=== PATIENT | male | born 1940 | race Caucasian/White ===

== ENCOUNTER 2019-02-13 10:54 | Outpatient (CLI) | payer MEDICARE ==
--- NOTE | 2019-02-13 13:57 | BD ---
DEXA DENSITOMETRY: HISTORY A 78-year-old male to assess bone density. Osteoporosis screening. FINDINGS: LUMBAR SPINE BMD (g/cm2) T-SCORE L1 0.900 -1.6 L2 1.016 -0.7 L3 1.009 -0.9 L4 1.021 -0.6 TOTAL 0.989 -0.9 FEMORAL NECK 0.653 -2.0 TOTAL 0.769 -1.7 IMPRESSION: 1. The bone mineral density of the lumbar spine is within the normal range. 2. The bone mineral density of the femoral neck indicates osteopenia. TEN YEAR FRACTURE RISK: Major osteoporotic fracture: 9.4% Hip fracture: 3.7% POS: [facility]
== END 2019-02-13 10:55 | disposition home or self-care (01) ==
LOC: BICMAMMO 10:54
PROVIDERS: ATTEND Internal Medicine Endocrinology, Diabetes & Metabolism
DX: M85.859 Other specified disorders of bone density and structure, unspecified thigh (principal); E23.0 Hypopituitarism
CPT/HCPCS: 77080

== ENCOUNTER 2019-08-27 14:22 | Outpatient (CLI) | payer MEDICARE ==
--- NOTE | 2019-08-27 15:02 | RAD ---
EXAM: XR Skull Less Than 4 View PROVIDED CLINICAL HISTORY: MRI screening evaluation. COMPARISON: None FINDINGS: There is a single metallic clip overlying the region of the sella turcica. I am unable to determine w hether this is within the soft tissues at the base of the pituitary or whether this is within the osseous structures of the sella. No additional metallic foreign body is visualized. There is suggesti on of postsurgical changes involving the left calvarium. Visualized paranasal sinuses are clear. IMPRESSION: Metallic clip overlying base of the sella turcica.
--- NOTE | 2019-08-27 16:57 | MRI ---
MRI BRAIN WITH AND WITHOUT CONTRAST: DATE: 08/27/2019 HISTORY: 79-year-old male with ICD-10: F 95.9, tic disorder COMPARISON: none TECHNIQUE: Multiplanar, multisequence MRI of the brain performed pre- and post-IV injection of gadolinium based contrast agent. FINDINGS: There is no magnetic susceptibility blooming artifact in the region of the floor of the sella turcica . Therefore the tiny metallic clip in that location found on today's skull radiograph is of nonferromagnetic material. There is a small to moderate-sized region of encephalomalacia and gliosis at the anterior and anterio r inferior pole of the right frontal lobe, consistent with old traumatic injury. The CSF space anterior to that is enlarged. 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 There are mild chronic ischemic white matter changes. Diffuse, age-appropriate brain parenchymal volu me loss. Old right frontal craniotomy changes. No acute intra-axial or extra-axial hemorrhage. No mass effect, midline shift, mass, or extra-axial fluid collection. No restricted diffusion. No abnorm al intra-axial enhancement. IMPRESSION: 1. No evidence of acute or aggressive intracranial lesion. 2. 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 3. 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
== END 2019-08-27 14:23 | disposition home or self-care (01) ==
LOC: SCSMRI 14:22
PROVIDERS: ATTEND Psychiatry & Neurology Neurology
DX: F95.9 Tic disorder, unspecified (principal); Z86.73 Personal history of transient ischemic attack (TIA), and cerebral infarction without residual deficits; Z98.890 Other specified postprocedural states
CPT/HCPCS: 70250; 70553; 82565

== ENCOUNTER 2022-10-26 12:18 | Inpatient (IN) | payer OTHER ==
[2022-10-26] MEDS ORDERED: Nitroglycerin 0.4mg/Hour PATCH ONE (12:40)
[2022-10-26] MEDS ORDERED: Nitroglycerin 2% Ointment 1 INCH/1 GM Packet ONE (12:41)
[2022-10-26 12:51] LABS: Hemoglobin 15.3 g/dL (14.0-18.0); Mean Corpuscular HGB CONC 33.3 g/dL (32.0-36.0); Mean Corpuscular Hemoglobin 28.3 pg (27.0-31.0); Mean Platelet Volume 9.3 fL (7.4-10.4); Platelet Count 211 10x3/uL (130-400); RBC Distribution Width 14.9 % (11.5-14.5); Red Blood Cell (RBC) Count 5.42 mill/uL (4.70-6.10); White Blood Cell (WBC) Count 8.1 10x3/uL (4.8-10.8)
[2022-10-26 13:04] LABS: Eosinophils 2 % (0-10); Lymphocytes 17 % (21-51); MDiff Complete? YES; Monocytes 19 % (0-10); Neutrophil 46 % (42-75); Platelet Morphology Comment Appears Adequate; Polychromasia SLIGHT = 2-3 cells (100X) (0-2/hpf); Reactive Lymphocytes 14 % (0-10)
[2022-10-26 13:05] LABS: PTT 67.4 sec (22.9-36.1); Prothrombin Time 13.9 sec (12.0-14.7)
[2022-10-26] MEDS ORDERED: Heparin 25,000 units/D5W 500 ML ONE (13:29)
[2022-10-26 13:41] LABS: CKMB 7.2 ng/mL (0-6.6)
[2022-10-26 15:34] LABS: ALT (SGPT) 23 U/L (8-55); AST (SGOT) 37 U/L (5-34); Albumin 3.7 g/dL (3.4-4.8); Alkaline Phosphatase 62 U/L (40-110); Anion Gap 15 mmol/L (10-20); BUN (Urea Nitrogen) 17 mg/dL (8.4-25.7); Bilirubin, Total 0.5 mg/dL (0.2-1.2); CK (CPK) 160 U/L (30-200); Calc. Creatinine Clearance 0 mL/min (70-130); Calcium 8.4 mg/dL (7.8-10.44); Carbon Dioxide 26 mmol/L (23-31); Chloride 101 mmol/L (98-107); Estimated GFR 52; Globulin 3.1 g/dL (2.4-3.5); Glucose 91 mg/dL (83-110); Lipase 62 U/L (8-78); Potassium 3.6 mmol/L (3.5-5.1); Protein, Total 6.8 g/dL (5.8-8.1); Sodium 138 mmol/L (136-145)
[2022-10-26] MEDS ORDERED: Aspirin 325 mg Enteric Coated Tablet PO SCH (16:00)
[2022-10-26 16:43] LABS: Troponin I 3.804 ng/mL (< 0.028)
[2022-10-26 17:17] LABS: SARS-CoV-2 NAA Rapid Test Not Detected (NotDetected)
[2022-10-26 20:23] LABS: Troponin I 7.068 ng/mL (< 0.028)
[2022-10-26] MEDS ORDERED: Communication Order-Pharmacy FS SCH (21:00)
[2022-10-26] MEDS: Hydrocortisone 10 mg Tablet PO SCH (21:20)
[2022-10-27 04:47] LABS: #Basophils 0.1 thou/uL (0.0-0.2); #Eosinphils 0.1 thou/uL (0.0-0.7); #Lymphocytes 1.9 thou/uL (1.20-3.40); #Neutrophils 4.2 thou/uL (1.40-6.50); %Basophils 0.8 % (0.0-1.0); %Eosinophils 1.6 % (0.0-10.0); %Lymphocytes 25.9 % (21.0-51.0); %Monocytes 13.8 % (0.0-10.0); %Neutrophils 57.9 % (42.0-75.0); Hemoglobin 15.5 g/dL (14.0-18.0); Mean Corpuscular HGB CONC 33.9 g/dL (32.0-36.0); Mean Corpuscular Hemoglobin 28.9 pg (27.0-31.0); Mean Corpuscular Volume 85.1 fl (78.0-98.0); Mean Platelet Volume 7.7 fL (7.4-10.4); Platelet Count 213 10x3/uL (130-400); RBC Distribution Width 14.8 % (11.5-14.5); Red Blood Cell (RBC) Count 5.36 mill/uL (4.70-6.10); White Blood Cell (WBC) Count 7.2 10x3/uL (4.8-10.8)
[2022-10-27 05:08] LABS: Anion Gap 11 mmol/L (10-20); BUN (Urea Nitrogen) 16 mg/dL (8.4-25.7); Calc. Creatinine Clearance 53 mL/min (70-130); Calcium 8.5 mg/dL (7.8-10.44); Carbon Dioxide 27 mmol/L (23-31); Chloride 101 mmol/L (98-107); Estimated GFR 58; Glucose 110 mg/dL (83-110); Potassium 4.2 mmol/L (3.5-5.1); Sodium 135 mmol/L (136-145)
[2022-10-27] MEDS: Levothyroxine 150 MCG TAB PO SCH (06:26)
[2022-10-27] MEDS: Aspirin 81 mg Enteric Coated Tablet PO SCH (06:27)
[2022-10-27] MEDS: Amlodipine 10 MG TAB PO SCH (06:27)
[2022-10-27] MEDS: Calcium Carbonate 600 MG + Vit D TAB PO SCH (06:27)
[2022-10-27] MEDS: Hydrocortisone 10 mg Tablet PO SCH ×2 (06:28→21:44)
[2022-10-27] MEDS: Dutasteride 0.5 MG CAP PO SCH (06:28)
[2022-10-27] MEDS: PARoxetine 20 MG TAB PO SCH (06:28)
[2022-10-27] MEDS: Bromocriptine 2.5 MG TAB PO SCH (06:29)
[2022-10-27] MEDS ORDERED: Midazolam HCl 2 mg/2 ml Vial ONE (07:54)
[2022-10-27] MEDS ORDERED: fentaNYL 50 mcg/mL 1 mL Vial ONE (07:54)
[2022-10-27] MEDS ORDERED: Sodium Chloride 0.9% 200 ML IV PRN (08:34)
[2022-10-27] MEDS ORDERED: Aspirin 325 mg Enteric Coated Tablet PO SCH (09:00)
[2022-10-27] MEDS ORDERED: Iopamidol 370 76% 100 ML VIAL ONE (11:30)
[2022-10-27] MEDS: Nitroglycerin 0.4 MG TAB (25 Tab Bottle) SL PRN ×6 (13:40→22:37)
[2022-10-27] MEDS ORDERED: Morphine 4 MG/ML VIAL ONE (13:55)
[2022-10-27] MEDS ORDERED: Morphine 2 MG/ML VIAL SLOW IVP SCH (14:00)
[2022-10-27] MEDS ORDERED: BEER 1 CAN PO SCH (18:45)
[2022-10-27] MEDS: Nitroglycerin 2% Ointment 1 INCH/1 GM Packet TOP SCH (19:56)
[2022-10-27] MEDS: Acetaminophen/Codeine 30-300mg Tablet PO PRN (21:45)
[2022-10-28] MEDS ORDERED: Morphine 2 MG/ML VIAL SLOW IVP PRN (00:45)
[2022-10-28 00:57] LABS: Anion Gap 13 mmol/L (10-20); BUN (Urea Nitrogen) 18 mg/dL (8.4-25.7); Calc. Creatinine Clearance 50 mL/min (70-130); Calcium 8.7 mg/dL (7.8-10.44); Carbon Dioxide 25 mmol/L (23-31); Chloride 101 mmol/L (98-107); Estimated GFR 55; Glucose 114 mg/dL (83-110); Magnesium 2.1 mg/dL (1.6-2.6); Potassium 3.9 mmol/L (3.5-5.1); Sodium 135 mmol/L (136-145)
[2022-10-28] MEDS: Acetaminophen/Codeine 30-300mg Tablet PO PRN (02:24)
[2022-10-28] MEDS ORDERED: Lorazepam 0.5 MG TAB PO SCH (03:45)
[2022-10-28] MEDS: Levothyroxine 150 MCG TAB PO SCH ×2 (07:34→08:36)
[2022-10-28] MEDS: Hydrocortisone 10 mg Tablet PO SCH ×2 (08:22→22:11)
[2022-10-28] MEDS: Calcium Carbonate 600 MG + Vit D TAB PO SCH (08:23)
[2022-10-28] MEDS: Amlodipine 10 MG TAB PO SCH (08:23)
[2022-10-28] MEDS: PARoxetine 20 MG TAB PO SCH (08:23)
[2022-10-28] MEDS: Dutasteride 0.5 MG CAP PO SCH (08:24)
[2022-10-28] MEDS: Nitroglycerin 2% Ointment 1 INCH/1 GM Packet TOP SCH ×2 (08:25→22:13)
[2022-10-28] MEDS: Aspirin 81 mg Enteric Coated Tablet PO SCH (08:25)
[2022-10-28] MEDS: BEER 1 CAN PO SCH ×3 (08:28→17:45)
[2022-10-28] MEDS ORDERED: Lorazepam 0.5 MG TAB PO PRN (09:10)
[2022-10-28] MEDS ORDERED: Thiamine 100 MG TAB PO SCH (09:30)
[2022-10-28] MEDS ORDERED: Multivit, Therapeutic 1 TAB PO SCH (09:30)
[2022-10-28] MEDS ORDERED: Folic Acid 1 MG TAB PO SCH (09:30)
[2022-10-28] MEDS ORDERED: hydrALAZINE 25 MG TAB PO SCH (10:00)
[2022-10-28] MEDS ORDERED: ALPRAZolam 0.5 MG TAB PO SCH (10:00)
[2022-10-28] MEDS: Bromocriptine 2.5 MG TAB PO SCH (12:35)
[2022-10-28] MEDS: ALPRAZolam 0.5 MG TAB PO SCH (22:11)
[2022-10-28] MEDS: hydrALAZINE 25 MG TAB PO SCH (22:12)
[2022-10-28] MEDS: Melatonin 3 MG TAB PO PRN (22:13)
[2022-10-29 05:03] LABS: Hemoglobin 14.2 g/dL (14.0-18.0); Mean Corpuscular HGB CONC 34.1 g/dL (32.0-36.0); Mean Corpuscular Volume 85.1 fl (78.0-98.0); Mean Platelet Volume 8.2 fL (7.4-10.4); Platelet Count 220 10x3/uL (130-400); RBC Distribution Width 15.1 % (11.5-14.5); White Blood Cell (WBC) Count 11.1 10x3/uL (4.8-10.8)
[2022-10-29] MEDS: Levothyroxine 150 MCG TAB PO SCH (05:07)
[2022-10-29 05:29] LABS: Anion Gap 12 mmol/L (10-20); BUN (Urea Nitrogen) 18 mg/dL (8.4-25.7); Calc. Creatinine Clearance 51 mL/min (70-130); Calcium 8.6 mg/dL (7.8-10.44); Carbon Dioxide 26 mmol/L (23-31); Chloride 100 mmol/L (98-107); Estimated GFR 56; Glucose 97 mg/dL (83-110); Potassium 3.9 mmol/L (3.5-5.1); Sodium 134 mmol/L (136-145)
[2022-10-29] MEDS ORDERED: Amlodipine 10 MG TAB PO SCH (09:00)
[2022-10-29] MEDS: Dutasteride 0.5 MG CAP PO SCH (10:10)
[2022-10-29] MEDS: hydrALAZINE 25 MG TAB PO SCH ×2 (10:11→20:20)
[2022-10-29] MEDS: Calcium Carbonate 600 MG + Vit D TAB PO SCH (10:11)
[2022-10-29] MEDS: Hydrocortisone 10 mg Tablet PO SCH ×2 (10:11→20:20)
[2022-10-29] MEDS: ALPRAZolam 0.5 MG TAB PO SCH ×2 (10:11→20:21)
[2022-10-29] MEDS: Nitroglycerin 2% Ointment 1 INCH/1 GM Packet TOP SCH ×2 (10:11→20:20)
[2022-10-29] MEDS: Aspirin 81 mg Enteric Coated Tablet PO SCH (10:11)
[2022-10-29] MEDS: Folic Acid 1 MG TAB PO SCH (10:11)
[2022-10-29] MEDS: BEER 1 CAN PO SCH ×3 (10:12→17:49)
[2022-10-29] MEDS: Multivit, Therapeutic 1 TAB PO SCH (10:12)
[2022-10-29] MEDS: PARoxetine 20 MG TAB PO SCH (10:13)
[2022-10-29] MEDS: Bromocriptine 2.5 MG TAB PO SCH (10:15)
[2022-10-29] MEDS: Melatonin 3 MG TAB PO PRN (20:20)
[2022-10-29] MEDS ORDERED: BEER 1 CAN PO SCH (21:00)
[2022-10-30 04:32] LABS: Hemoglobin 13.4 g/dL (14.0-18.0); Mean Corpuscular HGB CONC 32.1 g/dL (32.0-36.0); Mean Corpuscular Hemoglobin 27.3 pg (27.0-31.0); Mean Corpuscular Volume 85.1 fl (78.0-98.0); Mean Platelet Volume 8.1 fL (7.4-10.4); Platelet Count 214 10x3/uL (130-400); RBC Distribution Width 15.1 % (11.5-14.5); Red Blood Cell (RBC) Count 4.89 mill/uL (4.70-6.10); White Blood Cell (WBC) Count 10.3 10x3/uL (4.8-10.8)
[2022-10-30 05:19] LABS: Anion Gap 13 mmol/L (10-20); BUN (Urea Nitrogen) 17 mg/dL (8.4-25.7); Calc. Creatinine Clearance 47 mL/min (70-130); Calcium 8.5 mg/dL (7.8-10.44); Carbon Dioxide 24 mmol/L (23-31); Chloride 100 mmol/L (98-107); Estimated GFR 52; Glucose 99 mg/dL (83-110); Potassium 3.9 mmol/L (3.5-5.1); Sodium 133 mmol/L (136-145)
[2022-10-30] MEDS ORDERED: Lactated Ringer's 1,000 ML IV SCH (06:00)
[2022-10-30] MEDS: Levothyroxine 150 MCG TAB PO SCH (06:27)
[2022-10-30] MEDS: Multivit, Therapeutic 1 TAB PO SCH (10:17)
[2022-10-30] MEDS: hydrALAZINE 25 MG TAB PO SCH (10:17)
[2022-10-30] MEDS: ALPRAZolam 0.5 MG TAB PO SCH ×2 (10:17→20:21)
[2022-10-30] MEDS: Folic Acid 1 MG TAB PO SCH (10:18)
[2022-10-30] MEDS: BEER 1 CAN PO SCH ×2 (10:20→16:14)
[2022-10-30] MEDS: Bromocriptine 2.5 MG TAB PO SCH (10:21)
[2022-10-30] MEDS ORDERED: Dexmedetomidine 200 MCG/2 ML VIAL ONE (10:33)
[2022-10-30] MEDS ORDERED: fentaNYL 50 mcg/mL 1 mL Vial ONE (10:33)
[2022-10-30] MEDS ORDERED: Midazolam HCl 5 mg/5 ml Vial ONE (10:33)
[2022-10-30] MEDS ORDERED: Albumin 5% 500 ML ONE (10:45)
[2022-10-30] MEDS ORDERED: Sevoflurane 250 ML INH ANEST BOTTLE ONE (10:57)
[2022-10-30] MEDS ORDERED: Heparin 10,000 UNITS/1 ML VIAL 30,000 UNITS in Sodium Chloride 0.9% 1,000 ML FS SCH (11:15)
[2022-10-30] MEDS ORDERED: Ondansetron ODT 4 MG TAB ONE (11:34)
[2022-10-30] MEDS ORDERED: Lidocaine 1% PF 5 ML VIAL ONE ×2 (11:34→12:27)
[2022-10-30] MEDS ORDERED: CEFAZOLIN 2 GM VIAL ONE (12:10)
[2022-10-30] MEDS ORDERED: Sodium Chloride 0.9% 100 ML ONE (12:10)
[2022-10-30] MEDS ORDERED: Heparin 30,000 units/30 ml VIAL ONE (12:27)
[2022-10-30] MEDS ORDERED: Heparin 5,000 UNITS/ML VIAL ONE (12:27)
[2022-10-30] MEDS ORDERED: Lidocaine 2% PF 100 mg/5 ml Syringe ONE (12:27)
[2022-10-30] MEDS ORDERED: Vancomycin 1 GM VIAL ONE (12:27)
[2022-10-30] MEDS ORDERED: PROPOFOL 200 MG/20 ML VIAL ONE (12:27)
[2022-10-30] MEDS ORDERED: Glycopyrrolate 0.2 MG/ML 5 ML SYRINGE ONE (12:27)
[2022-10-30] MEDS ORDERED: Vecuronium 10 MG VIAL ONE (12:27)
[2022-10-30] MEDS ORDERED: Potassium Chloride 60 MEQ/30 ML VIAL ONE (12:27)
[2022-10-30] MEDS ORDERED: Magnesium 5 GM/10 ML VIAL ONE (12:27)
[2022-10-30] MEDS ORDERED: Thrombin 5000 UNITS/5 ML VIAL ONE (12:27)
[2022-10-30] MEDS ORDERED: Cardioplegic Soln 1,000 ML BAG ONE (12:27)
[2022-10-30] MEDS ORDERED: Esmolol 100 MG/10 ML VIAL ONE (12:27)
[2022-10-30] MEDS ORDERED: Papaverine 60 MG/2 ML VIAL ONE (12:27)
[2022-10-30] MEDS ORDERED: Calcium Chloride 1 GM/10 ML Abboject SYRINGE ONE (12:27)
[2022-10-30] MEDS ORDERED: Mannitol 12.5 GM/50 ML ONE (12:27)
[2022-10-30] MEDS ORDERED: Aminocaproic Acid 5 GM/20 ML VIAL ONE (12:27)
[2022-10-30] MEDS ORDERED: NEOSTIGMINE 3 MG/3 ML SYR 3 MG/3 ML SYRINGE ONE (12:27)
[2022-10-30] MEDS ORDERED: Protamine Sulfate 250 MG/25 ML VIAL ONE (12:27)
[2022-10-30] MEDS ORDERED: Sodium Bicarb 50 MEQ/50 ML VIAL ONE (12:27)
[2022-10-30] MEDS ORDERED: Ondansetron PF 4 MG/2 ML Vial ONE (12:27)
[2022-10-30] MEDS ORDERED: NOREPINEPHRINE 8 MG/250 ML-D5W 250 ML ONE (15:16)
[2022-10-30 15:20] LABS: Actual Bicarbonate (HCO3a) 23.8 mEq/L (22-28); Base Excess (BEa) -1.3 mEq/L (-2.0 to +3.0); CO2 Tension 41.2 mmHg (35.0-45.0); Calcium, Ionized (arterial) 1.08 mmol/L (1.12-1.30); Carboxyhemoglobin (COHb) 0.6 gm% (0.0-3.0); Hemoglobin (Hb) 12.9 g/dL (14.0-18.0); O2 Tension (PaO2), arterial 106.2 mmHg (> 60.0); Potassium - ABG Lab 4.63 mmol/L (3.70-5.30); pH, Arterial 7.38 (7.35-7.45)
[2022-10-30 15:21] LABS: Puncture Site Arterial Line
[2022-10-30] MEDS ORDERED: DOPamine 400 MG/D5W 250 ML 250 ML ONE (15:21)
[2022-10-30] MEDS ORDERED: Albumin 5% 250 ML ONE ×2 (15:23→15:32)
[2022-10-30] MEDS ORDERED: Ondansetron PF 4 MG/2 ML Vial IVP PRN (15:26)
[2022-10-30] MEDS ORDERED: Nitroglycerin 50 MG/250 ML BOT 250 ML IVPB PRN (15:26)
[2022-10-30] MEDS ORDERED: niCARdipine 25 MG in Sodium Chloride 0.9% 250 ML 250 ML IVPB PRN (15:26)
[2022-10-30] MEDS ORDERED: Ipratropium/Albuterol 3 ML NEB NEB PRN (15:26)
[2022-10-30] MEDS ORDERED: traMADol HCl 50 MG TAB PO PRN (15:26)
[2022-10-30] MEDS ORDERED: DOPamine 400 MG/D5W 250 ML 250 ML IVPB PRN (15:26)
[2022-10-30] MEDS ORDERED: Mag-Al 1200 mg/1200 mg/30 ML UDCUP PO PRN (15:26)
[2022-10-30] MEDS ORDERED: Hetastarch 6% 500 ML 500 ML IVPB PRN (15:26)
[2022-10-30] MEDS ORDERED: Post-Op Insulin Drip Protocol IVPB ONE (15:26)
[2022-10-30] MEDS ORDERED: Bisacodyl 10 MG SUPP PR PRN (15:26)
[2022-10-30] MEDS ORDERED: Guaifenesin DM 100-10/5 ML UDCUP PO PRN (15:26)
[2022-10-30] MEDS ORDERED: Bisacodyl 5 MG TAB PO PRN (15:26)
[2022-10-30] MEDS ORDERED: Fentanyl 100 MCG/2 ML VIAL SLOW IVP PRN ×2 (15:26)
[2022-10-30] MEDS: Morphine 2 MG/ML VIAL SLOW IVP PRN ×2 (15:46→16:10)
[2022-10-30] MEDS: Lactated Ringer's 1,000 ML IV SCH (15:56)
[2022-10-30] MEDS ORDERED: Dextrose 50% Abboject 50 ML SYRINGE SLOW IVP PRN (16:00)
[2022-10-30] MEDS ORDERED: HUMULIN R 100 UNITS in Sodium Chloride 0.9% 100 ML IVPB SCH (16:00)
[2022-10-30] MEDS ORDERED: Dextrose 5% in Water 1,000 ML IV PRN (16:00)
[2022-10-30] MEDS: NOREPINEPHRINE 8 MG/250 ML-D5W 250 ML IVPB PRN (16:13)
[2022-10-30 16:18] LABS: Hemoglobin 12.4 g/dL (14.0-18.0); Mean Corpuscular HGB CONC 32.8 g/dL (32.0-36.0); Mean Corpuscular Hemoglobin 28.4 pg (27.0-31.0); Mean Corpuscular Volume 86.5 fl (78.0-98.0); Mean Platelet Volume 8.6 fL (7.4-10.4); Platelet Count 172 10x3/uL (130-400); RBC Distribution Width 15.2 % (11.5-14.5); Red Blood Cell (RBC) Count 4.38 mill/uL (4.70-6.10); White Blood Cell (WBC) Count 21.4 10x3/uL (4.8-10.8)
[2022-10-30 16:28] LABS: INR-International Normal Ratio 1.3; PTT 31.8 sec (22.9-36.1); Prothrombin Time 16.6 sec (12.0-14.7)
[2022-10-30 16:33] LABS: Band 14 % (5-11); Lymphocytes 7 % (21-51); MDiff Complete? YES; Monocytes 5 % (0-10); Myelocyte 1 % (0-0); Neutrophil 72 % (42-75); Ovalocytes SLIGHT = 2-5 cells (100X) (0-1/hpf); Platelet Morphology Comment Appears Adequate; Polychromasia SLIGHT = 2-3 cells (100X) (0-2/hpf); Reactive Lymphocytes 1 % (0-10)
[2022-10-30 16:37] LABS: Anion Gap 11 mmol/L (10-20); BUN (Urea Nitrogen) 16 mg/dL (8.4-25.7); Calc. Creatinine Clearance 57 mL/min (70-130); Calcium 7.4 mg/dL (7.8-10.44); Carbon Dioxide 24 mmol/L (23-31); Chloride 104 mmol/L (98-107); Estimated GFR 67; Glucose 115 mg/dL (83-110); Potassium 4.9 mmol/L (3.5-5.1); Sodium 134 mmol/L (136-145)
[2022-10-30 17:32] LABS: Actual Bicarbonate (HCO3a) 22.5 mEq/L (22-28); Base Excess (BEa) -3.5 mEq/L (-2.0 to +3.0); CO2 Tension 44.4 mmHg (35.0-45.0); Calcium, Ionized (arterial) 1.05 mmol/L (1.12-1.30); Carboxyhemoglobin (COHb) 0.9 gm% (0.0-3.0); Hemoglobin (Hb) 13.5 g/dL (14.0-18.0); O2 Tension (PaO2), arterial 68.9 mmHg (> 60.0); Potassium - ABG Lab 4.15 mmol/L (3.70-5.30); Puncture Site Arterial Line; pH, Arterial 7.32 (7.35-7.45)
[2022-10-30] MEDS: Melatonin 3 MG TAB PO PRN (20:21)
[2022-10-30] MEDS: Famotidine/PF 20 mg/2ml Vial SLOW IVP SCH (20:21)
[2022-10-30] MEDS: CEFAZOLIN 2 GM in Sodium Chloride 0.9% 100 ML IVPB SCH (20:21)
[2022-10-30] MEDS: Insulin Regular 300 UNITS/3 ML VIAL SC PRN (20:46)
[2022-10-30 21:27] LABS: Potassium 4.1 mmol/L (3.5-5.1)
[2022-10-31] MEDS: CEFAZOLIN 2 GM in Sodium Chloride 0.9% 100 ML IVPB SCH ×2 (04:24→11:24)
[2022-10-31 05:00] LABS: #Lymphocytes 0.5 thou/uL (1.20-3.40); #Monocytes 1.7 thou/uL (0.11-0.59); #Neutrophils 15.8 thou/uL (1.40-6.50); %Basophils 0.1 % (0.0-1.0); %Eosinophils 0.1 % (0.0-10.0); %Lymphocytes 2.7 % (21.0-51.0); %Monocytes 9.3 % (0.0-10.0); %Neutrophils 87.8 % (42.0-75.0); Hemoglobin 12.3 g/dL (14.0-18.0); Mean Corpuscular HGB CONC 32.7 g/dL (32.0-36.0); Mean Corpuscular Hemoglobin 28.1 pg (27.0-31.0); Mean Platelet Volume 8.7 fL (7.4-10.4); Platelet Count 190 10x3/uL (130-400); RBC Distribution Width 15.1 % (11.5-14.5); Red Blood Cell (RBC) Count 4.37 mill/uL (4.70-6.10)
[2022-10-31 05:22] LABS: Anion Gap 9 mmol/L (10-20); BUN (Urea Nitrogen) 16 mg/dL (8.4-25.7); Calc. Creatinine Clearance 57 mL/min (70-130); Calcium 7.9 mg/dL (7.8-10.44); Carbon Dioxide 25 mmol/L (23-31); Chloride 105 mmol/L (98-107); Estimated GFR 67; Glucose 143 mg/dL (83-110); Potassium 3.9 mmol/L (3.5-5.1); Sodium 135 mmol/L (136-145)
[2022-10-31] MEDS: Lactated Ringer's 1,000 ML IV SCH ×3 (05:35→20:04)
[2022-10-31] MEDS ORDERED: DEXMEDETOMIDINE IVPB SCH (08:45)
[2022-10-31] MEDS ORDERED: SODIUM CHLORIDE 0.9% IVPB SCH (08:45)
[2022-10-31] MEDS: ALPRAZolam 0.5 MG TAB PO SCH ×3 (08:48→22:05)
[2022-10-31] MEDS: Magnesium 2 GM/50 ML(in water) 2 GM in Premix Bag 1 BAG IVPB SCH (08:48)
[2022-10-31] MEDS: Aspirin Chewable 81 MG TAB PO SCH (08:48)
[2022-10-31] MEDS: Dexmedetomidine 1,000 MCG in Sodium Chloride 0.9% 250 ML 240 ML IVPB SCH (08:49)
[2022-10-31] MEDS ORDERED: Thiamine 100 MG TAB PO SCH (09:00)
[2022-10-31] MEDS ORDERED: Lorazepam 0.5 MG TAB PO PRN (09:09)
[2022-10-31] MEDS: BEER 1 CAN PO SCH ×3 (10:00→17:13)
[2022-10-31] MEDS: Insulin Regular 300 UNITS/3 ML VIAL SC PRN (12:12)
[2022-10-31] MEDS ORDERED: Insulin Glargine 30 UNITS/0.3 ML VIAL SC PRN (15:48)
[2022-10-31] MEDS: Famotidine/PF 20 mg/2ml Vial SLOW IVP SCH (20:04)
[2022-10-31] MEDS: NOREPINEPHRINE 8 MG/250 ML-D5W 250 ML IVPB PRN (22:43)
[2022-10-31] MEDS: fentaNYL 50 mcg/mL 1 mL Vial SLOW IVP PRN (23:14)
[2022-11-01] MEDS: Dexmedetomidine 1,000 MCG in Sodium Chloride 0.9% 250 ML 240 ML IVPB SCH (02:04)
[2022-11-01] MEDS: fentaNYL 50 mcg/mL 1 mL Vial SLOW IVP PRN (03:56)
[2022-11-01] MEDS ORDERED: Sterile Water 10 ML VIAL FS PRN (04:00)
[2022-11-01] MEDS ORDERED: OLANZapine 10 MG VIAL IM SCH (04:00)
[2022-11-01 05:20] LABS: Hemoglobin 11.7 g/dL (14.0-18.0); Mean Corpuscular HGB CONC 32.1 g/dL (32.0-36.0); Mean Corpuscular Hemoglobin 28.2 pg (27.0-31.0); Mean Corpuscular Volume 87.8 fl (78.0-98.0); Mean Platelet Volume 9.7 fL (7.4-10.4); Platelet Count 192 10x3/uL (130-400); RBC Distribution Width 15.3 % (11.5-14.5); Red Blood Cell (RBC) Count 4.15 mill/uL (4.70-6.10); White Blood Cell (WBC) Count 22.3 10x3/uL (4.8-10.8)
[2022-11-01 05:27] LABS: Anion Gap 13 mmol/L (10-20); BUN (Urea Nitrogen) 24 mg/dL (8.4-25.7); Calc. Creatinine Clearance 44 mL/min (70-130); Calcium 7.7 mg/dL (7.8-10.44); Carbon Dioxide 24 mmol/L (23-31); Chloride 105 mmol/L (98-107); Estimated GFR 46; Glucose 113 mg/dL (83-110); Potassium 4.4 mmol/L (3.5-5.1); Sodium 138 mmol/L (136-145)
[2022-11-01 05:59] LABS: Anisocytosis SLIGHT = 6-15 cells (100X) (0-5/hpf); Band 3 % (5-11); Lymphocytes 2 % (21-51); MDiff Complete? YES; Monocytes 15 % (0-10); Neutrophil 80 % (42-75); Platelet Morphology Comment Appears Adequate; Polychromasia SLIGHT = 2-3 cells (100X) (0-2/hpf)
[2022-11-01] MEDS ORDERED: Midazolam HCl 2 mg/2 ml Vial ONE ×3 (07:59→08:34)
[2022-11-01] MEDS ORDERED: Rocuronium Bromide 10 MG/ML (10ML VIAL) ONE (08:32)
[2022-11-01] MEDS: Midazolam HCl 5 mg/5 ml Vial SLOW IVP SCH ×2 (08:37→09:47)
[2022-11-01] MEDS ORDERED: Ventilator Sedation Protocol 1 EACH FS ONE (08:40)
[2022-11-01] MEDS ORDERED: DISCONTINUE PREVIOUS NARCOTIC PAIN MEDICATIONS AND BENZODIAZEPINES FS SCH (09:00)
[2022-11-01] MEDS ORDERED: Propofol BOLUS 1,000 MG/100 ML VIAL IV PRN (09:00)
[2022-11-01] MEDS ORDERED: Fentanyl BOLUS 250 ML IVPB PRN (09:00)
[2022-11-01 09:14] LABS: Actual Bicarbonate (HCO3a) 20.1 mEq/L (22-28); Base Excess (BEa) -4.5 mEq/L (-2.0 to +3.0); CO2 Tension 35.1 mmHg (35.0-45.0); Calcium, Ionized (arterial) 1.02 mmol/L (1.12-1.30); Carboxyhemoglobin (COHb) 0.2 gm% (0.0-3.0); Hemoglobin (Hb) 11.7 g/dL (14.0-18.0); Potassium - ABG Lab 4.17 mmol/L (3.70-5.30); pH, Arterial 7.38 (7.35-7.45)
[2022-11-01] MEDS: Ipratropium/Albuterol 3 ML NEB NEB SCH ×3 (09:19→22:08)
[2022-11-01 09:22] LABS: ALV-art Gradient 183.925 mmHg (0-20); Puncture Site LBA
[2022-11-01] MEDS: Magnesium 2 GM/50 ML(in water) 2 GM in Premix Bag 1 BAG IVPB SCH (09:29)
[2022-11-01] MEDS: Propofol 1,000 MG/100 ML VIAL IV PRN ×2 (09:30→22:54)
[2022-11-01] MEDS: Aspirin Chewable 81 MG TAB PO SCH (09:31)
[2022-11-01] MEDS: methylPREDNISolone Sod Succ 40 MG VIAL IVP SCH (09:31)
[2022-11-01] MEDS ORDERED: Rocuronium Bromide 10 MG/ML (10ML VIAL) IVP SCH (09:45)
[2022-11-01] MEDS: cefTRIAXone\\ROCEPHIN 2 GM in Sodium Chloride 0.9% 100 ML IVPB SCH (09:54)
[2022-11-01] MEDS: BEER 1 CAN PO SCH (11:49)
[2022-11-01] MEDS: Lactated Ringer's 1,000 ML IV SCH (12:17)
[2022-11-01] MEDS: Lorazepam 2 MG/ML VIAL SLOW IVP PRN ×3 (13:59→20:51)
[2022-11-01 15:14] LABS: Actual Bicarbonate (HCO3a) 25.1 mEq/L (22-28); Analyzer IN Cardio OR; Base Excess (BEa) 1.3 mEq/L (-2.0 to +3.0); CO2 Tension 36.7 mmHg (35.0-45.0); Calcium, Ionized (arterial) 1.09 mmol/L (1.12-1.30); Carboxyhemoglobin (COHb) 0.4 gm% (0.0-3.0); Hemoglobin (Hb) 10.9 g/dL (14.0-18.0); O2 Tension (PaO2), arterial 487.4 mmHg (> 60.0); Potassium - ABG Lab 4.67 mmol/L (3.70-5.30); pH, Arterial 7.45 (7.35-7.45)
[2022-11-01 15:15] LABS: Actual Bicarbonate (HCO3a) 26.6 mEq/L (22-28); Analyzer IN Cardio OR; Base Excess (BEa) 2.5 mEq/L (-2.0 to +3.0); CO2 Tension 39.2 mmHg (35.0-45.0); Calcium, Ionized (arterial) 1.08 mmol/L (1.12-1.30); Carboxyhemoglobin (COHb) 1.4 gm% (0.0-3.0); Hemoglobin (Hb) 13.6 g/dL (14.0-18.0); O2 Tension (PaO2), arterial 492.1 mmHg (> 60.0); Potassium - ABG Lab 3.29 mmol/L (3.70-5.30); pH, Arterial 7.45 (7.35-7.45)
[2022-11-01 15:15] LABS: Actual Bicarbonate (HCO3a) 21.1 mEq/L (22-28); Analyzer IN Cardio OR; Base Excess (BEa) -3.9 mEq/L (-2.0 to +3.0); CO2 Tension 38.2 mmHg (35.0-45.0); Calcium, Ionized (arterial) 1.04 mmol/L (1.12-1.30); Carboxyhemoglobin (COHb) 0.7 gm% (0.0-3.0); Hemoglobin (Hb) 10.5 g/dL (14.0-18.0); O2 Tension (PaO2), arterial 383.6 mmHg (> 60.0); Potassium - ABG Lab 4.76 mmol/L (3.70-5.30); pH, Arterial 7.36 (7.35-7.45)
[2022-11-01 15:15] LABS: Actual Bicarbonate (HCO3a) 24.5 mEq/L (22-28); Analyzer IN Cardio OR; Base Excess (BEa) 0.8 mEq/L (-2.0 to +3.0); CO2 Tension 36.1 mmHg (35.0-45.0); Calcium, Ionized (arterial) 1.06 mmol/L (1.12-1.30); Carboxyhemoglobin (COHb) 1.4 gm% (0.0-3.0); O2 Tension (PaO2), arterial 463.9 mmHg (> 60.0); Potassium - ABG Lab 3.45 mmol/L (3.70-5.30); pH, Arterial 7.45 (7.35-7.45)
[2022-11-01 15:16] LABS: Puncture Site Arterial Line
[2022-11-01 15:16] LABS: Puncture Site Arterial Line
[2022-11-01 15:16] LABS: Puncture Site Arterial Line
[2022-11-01 15:17] LABS: Puncture Site Arterial Line
[2022-11-01] MEDS: Insulin Regular 300 UNITS/3 ML VIAL SC PRN ×2 (16:26→20:48)
[2022-11-01] MEDS: Famotidine/PF 20 mg/2ml Vial SLOW IVP SCH (20:39)
[2022-11-01] MEDS: Morphine 2 MG/ML VIAL SLOW IVP PRN (21:01)
[2022-11-02] MEDS: Insulin Regular 300 UNITS/3 ML VIAL SC PRN ×3 (00:39→23:27)
[2022-11-02] MEDS: Lactated Ringer's 1,000 ML IV SCH ×2 (02:01→16:25)
[2022-11-02] MEDS: Ipratropium/Albuterol 3 ML NEB NEB SCH ×4 (02:31→20:28)
[2022-11-02 03:36] LABS: #Lymphocytes 0.7 thou/uL (1.20-3.40); #Monocytes 2.3 thou/uL (0.11-0.59); #Neutrophils 14.2 thou/uL (1.40-6.50); %Basophils 0.2 % (0.0-1.0); %Eosinophils 0.1 % (0.0-10.0); %Lymphocytes 3.9 % (21.0-51.0); %Monocytes 13.2 % (0.0-10.0); %Neutrophils 82.6 % (42.0-75.0); Hemoglobin 11.1 g/dL (14.0-18.0); Mean Corpuscular HGB CONC 32.6 g/dL (32.0-36.0); Mean Corpuscular Hemoglobin 28.4 pg (27.0-31.0); Platelet Count 188 10x3/uL (130-400); RBC Distribution Width 15.3 % (11.5-14.5); Red Blood Cell (RBC) Count 3.92 mill/uL (4.70-6.10); White Blood Cell (WBC) Count 17.2 10x3/uL (4.8-10.8)
[2022-11-02 04:04] LABS: ALT (SGPT) 13 U/L (8-55); AST (SGOT) 34 U/L (5-34); Albumin 2.9 g/dL (3.4-4.8); Alkaline Phosphatase 38 U/L (40-110); Anion Gap 9 mmol/L (10-20); BUN (Urea Nitrogen) 22 mg/dL (8.4-25.7); Bilirubin, Total 0.3 mg/dL (0.2-1.2); Calc. Creatinine Clearance 63 mL/min (70-130); Calcium 7.6 mg/dL (7.8-10.44); Carbon Dioxide 25 mmol/L (23-31); Chloride 104 mmol/L (98-107); Estimated GFR 68; Globulin 2.5 g/dL (2.4-3.5); Glucose 108 mg/dL (83-110); Potassium 3.3 mmol/L (3.5-5.1); Protein, Total 5.4 g/dL (5.8-8.1); Sodium 135 mmol/L (136-145)
[2022-11-02] MEDS: Potassium Chloride 20 MEQ/100 ML PREMIX BAG IVPB PRN (05:04)
[2022-11-02] MEDS: Propofol 1,000 MG/100 ML VIAL IV PRN ×4 (05:38→23:18)
[2022-11-02 07:22] LABS: Actual Bicarbonate (HCO3a) 25.9 mEq/L (22-28); Base Excess (BEa) 2.5 mEq/L (-2.0 to +3.0); CO2 Tension 35.9 mmHg (35.0-45.0); Calcium, Ionized (arterial) 1.07 mmol/L (1.12-1.30); Carboxyhemoglobin (COHb) 0.2 gm% (0.0-3.0); Hemoglobin (Hb) 11.4 g/dL (14.0-18.0); O2 Tension (PaO2), arterial 62.7 mmHg (> 60.0); pH, Arterial 7.48 (7.35-7.45)
[2022-11-02 07:27] LABS: Puncture Site RRA
[2022-11-02 07:30] LABS: ALV-art Gradient 177.625 mmHg (0-20)
[2022-11-02] MEDS: cefTRIAXone\\ROCEPHIN 2 GM in Sodium Chloride 0.9% 100 ML IVPB SCH (08:09)
[2022-11-02] MEDS: methylPREDNISolone Sod Succ 40 MG VIAL IVP SCH (08:10)
[2022-11-02] MEDS: Morphine 2 MG/ML VIAL SLOW IVP PRN (08:10)
[2022-11-02] MEDS: Aspirin Chewable 81 MG TAB PO SCH (08:10)
[2022-11-02 08:59] LABS: O2 Tension (PaO2), arterial 57.4 mmHg (> 60.0)
[2022-11-02] MEDS ORDERED: Pantoprazole 40 MG VIAL IVP SCH (09:30)
[2022-11-02] MEDS: hydrALAZINE 20 MG/ML VIAL SLOW IVP PRN (18:11)
[2022-11-02] MEDS: Lorazepam 2 MG/ML VIAL SLOW IVP PRN (18:11)
[2022-11-02] MEDS: Pantoprazole 40 MG VIAL IVP SCH (21:58)
[2022-11-03] MEDS: Ipratropium/Albuterol 3 ML NEB NEB SCH ×5 (02:47→23:17)
[2022-11-03] MEDS: Lorazepam 2 MG/ML VIAL SLOW IVP PRN ×5 (03:31→19:43)
[2022-11-03 04:08] LABS: #Lymphocytes 0.6 thou/uL (1.20-3.40); #Monocytes 1.8 thou/uL (0.11-0.59); %Eosinophils 0.1 % (0.0-10.0); %Lymphocytes 3.8 % (21.0-51.0); %Monocytes 11.6 % (0.0-10.0); %Neutrophils 84.5 % (42.0-75.0); Hemoglobin 11.9 g/dL (14.0-18.0); Mean Corpuscular HGB CONC 32.2 g/dL (32.0-36.0); Mean Corpuscular Hemoglobin 28.1 pg (27.0-31.0); Mean Corpuscular Volume 87.4 fl (78.0-98.0); Mean Platelet Volume 9.1 fL (7.4-10.4); Platelet Count 199 10x3/uL (130-400); RBC Distribution Width 15.6 % (11.5-14.5); Red Blood Cell (RBC) Count 4.23 mill/uL (4.70-6.10); White Blood Cell (WBC) Count 15.4 10x3/uL (4.8-10.8)
[2022-11-03] MEDS ORDERED: Amiodarone 150 MG, Admixture Fee 1 EACH in Dextrose 5% in Water 100 ML IVPB SCH (04:15)
[2022-11-03 04:26] LABS: Anion Gap 12 mmol/L (10-20); BUN (Urea Nitrogen) 19 mg/dL (8.4-25.7); Calc. Creatinine Clearance 76 mL/min (70-130); Calcium 8.1 mg/dL (7.8-10.44); Carbon Dioxide 24 mmol/L (23-31); Chloride 105 mmol/L (98-107); Estimated GFR 83; Glucose 144 mg/dL (83-110); Magnesium 2.5 mg/dL (1.6-2.6); Potassium 3.8 mmol/L (3.5-5.1); Sodium 137 mmol/L (136-145)
[2022-11-03] MEDS: Amiodarone 450 MG in Dextrose 5% in Water 250 ML IVPB SCH ×2 (04:28→10:31)
[2022-11-03] MEDS: Propofol 1,000 MG/100 ML VIAL IV PRN ×3 (04:28→23:36)
[2022-11-03] MEDS: Insulin Regular 300 UNITS/3 ML VIAL SC PRN ×4 (04:29→21:21)
[2022-11-03] MEDS: Lactated Ringer's 1,000 ML IV SCH (05:09)
[2022-11-03] MEDS ORDERED: Fentanyl CADD 100 ML ONE (09:42)
[2022-11-03] MEDS: cefTRIAXone\\ROCEPHIN 2 GM in Sodium Chloride 0.9% 100 ML IVPB SCH (09:45)
[2022-11-03] MEDS: Fentanyl CADD 100 ML IV SCH (09:45)
[2022-11-03] MEDS: Pantoprazole 40 MG VIAL IVP SCH ×2 (09:47→21:03)
[2022-11-03] MEDS: methylPREDNISolone Sod Succ 40 MG VIAL IVP SCH (09:47)
[2022-11-03] MEDS: Aspirin Chewable 81 MG TAB PO SCH (09:47)
[2022-11-03] MEDS: Potassium Chloride 20 MEQ/100 ML PREMIX BAG IVPB PRN (10:40)
[2022-11-03] MEDS ORDERED: Vecuronium 10 MG VIAL IVP SCH (20:30)
[2022-11-03] MEDS ORDERED: Ipratropium/Albuterol 3 ML NEB ONE (20:31)
[2022-11-04] MEDS: Insulin Regular 300 UNITS/3 ML VIAL SC PRN ×3 (00:37→23:33)
[2022-11-04] MEDS: Lorazepam 2 MG/ML VIAL SLOW IVP PRN ×4 (00:51→21:09)
[2022-11-04] MEDS ORDERED: Vecuronium 10 MG VIAL ONE (00:54)
[2022-11-04] MEDS: Amiodarone 450 MG in Dextrose 5% in Water 250 ML IVPB SCH ×2 (02:19→20:02)
[2022-11-04] MEDS: Propofol 1,000 MG/100 ML VIAL IV PRN ×3 (04:38→20:02)
[2022-11-04 04:48] LABS: #Lymphocytes 0.5 thou/uL (1.20-3.40); #Monocytes 1.2 thou/uL (0.11-0.59); #Neutrophils 9.6 thou/uL (1.40-6.50); %Eosinophils 0.1 % (0.0-10.0); %Lymphocytes 4.3 % (21.0-51.0); %Monocytes 10.4 % (0.0-10.0); %Neutrophils 85.2 % (42.0-75.0); Hemoglobin 10.1 g/dL (14.0-18.0); Mean Corpuscular HGB CONC 31.7 g/dL (32.0-36.0); Mean Corpuscular Hemoglobin 27.9 pg (27.0-31.0); Mean Corpuscular Volume 88.2 fl (78.0-98.0); Mean Platelet Volume 9.2 fL (7.4-10.4); Platelet Count 208 10x3/uL (130-400); RBC Distribution Width 15.7 % (11.5-14.5); Red Blood Cell (RBC) Count 3.61 mill/uL (4.70-6.10); White Blood Cell (WBC) Count 11.3 10x3/uL (4.8-10.8)
[2022-11-04 05:09] LABS: Anion Gap 10 mmol/L (10-20); BUN (Urea Nitrogen) 28 mg/dL (8.4-25.7); Calc. Creatinine Clearance 76 mL/min (70-130); Calcium 7.6 mg/dL (7.8-10.44); Carbon Dioxide 24 mmol/L (23-31); Chloride 106 mmol/L (98-107); Estimated GFR 80; Glucose 173 mg/dL (83-110); Potassium 4.5 mmol/L (3.5-5.1); Sodium 135 mmol/L (136-145)
[2022-11-04] MEDS: Ipratropium/Albuterol 3 ML NEB NEB SCH ×4 (08:40→23:25)
[2022-11-04] MEDS: cefTRIAXone\\ROCEPHIN 2 GM in Sodium Chloride 0.9% 100 ML IVPB SCH (09:39)
[2022-11-04] MEDS: Pantoprazole 40 MG VIAL IVP SCH ×2 (09:39→20:29)
[2022-11-04] MEDS: Aspirin Chewable 81 MG TAB PO SCH (09:40)
[2022-11-04] MEDS: methylPREDNISolone Sod Succ 40 MG VIAL IVP SCH (09:40)
[2022-11-04] MEDS: Vecuronium 10 MG VIAL IV PRN ×3 (12:42→22:18)
[2022-11-04] MEDS ORDERED: Furosemide 20 MG/2 ML VIAL SLOW IVP SCH (14:15)
[2022-11-04] MEDS ORDERED: Fentanyl CADD 100 ML ONE (19:35)
[2022-11-04] MEDS: Fentanyl CADD 100 ML IV SCH (20:00)
[2022-11-04] MEDS: hydrALAZINE 20 MG/ML VIAL SLOW IVP PRN (21:04)
[2022-11-05] MEDS: Lorazepam 2 MG/ML VIAL SLOW IVP PRN ×5 (01:21→20:47)
[2022-11-05] MEDS: Propofol 1,000 MG/100 ML VIAL IV PRN ×3 (01:27→15:44)
[2022-11-05] MEDS: Vecuronium 10 MG VIAL IV PRN ×4 (04:40→21:12)
[2022-11-05] MEDS: Ipratropium/Albuterol 3 ML NEB NEB SCH ×4 (07:09→23:13)
[2022-11-05 07:37] LABS: Actual Bicarbonate (HCO3a) 28.7 mEq/L (22-28); Base Excess (BEa) 3.7 mEq/L (-2.0 to +3.0); CO2 Tension 45.1 mmHg (35.0-45.0); Calcium, Ionized (arterial) 1.07 mmol/L (1.12-1.30); Carboxyhemoglobin (COHb) 0.8 gm% (0.0-3.0); Hemoglobin (Hb) 13.7 g/dL (14.0-18.0); O2 Tension (PaO2), arterial 70.5 mmHg (> 60.0); Potassium - ABG Lab 5.03 mmol/L (3.70-5.30); pH, Arterial 7.42 (7.35-7.45)
[2022-11-05 07:41] LABS: ALV-art Gradient 229.625 mmHg (0-20); Puncture Site LRA
[2022-11-05 07:55] LABS: Hemoglobin 12.1 g/dL (14.0-18.0); Mean Corpuscular HGB CONC 31.2 g/dL (32.0-36.0); Mean Corpuscular Hemoglobin 27.8 pg (27.0-31.0); Platelet Count 273 10x3/uL (130-400); RBC Distribution Width 15.7 % (11.5-14.5); Red Blood Cell (RBC) Count 4.35 mill/uL (4.70-6.10); White Blood Cell (WBC) Count 15.6 10x3/uL (4.8-10.8)
[2022-11-05 08:25] LABS: Anion Gap 13 mmol/L (10-20); BUN (Urea Nitrogen) 36 mg/dL (8.4-25.7); Calc. Creatinine Clearance 72 mL/min (70-130); Calcium 8.1 mg/dL (7.8-10.44); Carbon Dioxide 26 mmol/L (23-31); Chloride 103 mmol/L (98-107); Estimated GFR 75; Glucose 121 mg/dL (83-110); Potassium 5.1 mmol/L (3.5-5.1); Sodium 137 mmol/L (136-145)
[2022-11-05] MEDS: Aspirin Chewable 81 MG TAB PO SCH (08:34)
[2022-11-05] MEDS: Furosemide 20 MG/2 ML VIAL SLOW IVP SCH (08:38)
[2022-11-05] MEDS: cefTRIAXone\\ROCEPHIN 2 GM in Sodium Chloride 0.9% 100 ML IVPB SCH (08:57)
[2022-11-05] MEDS: Pantoprazole 40 MG VIAL IVP SCH ×2 (08:58→20:50)
[2022-11-05] MEDS: methylPREDNISolone Sod Succ 40 MG VIAL IVP SCH (08:58)
[2022-11-05] MEDS: Polyethylene Glycol 3350 17 GM Packet PER TUBE SCH (10:09)
[2022-11-05 11:47] LABS: Anisocytosis SLIGHT = 6-15 cells (100X) (0-5/hpf); Lymphocytes 4 % (21-51); MDiff Complete? YES; Monocytes 10 % (0-10); Neutrophil 86 % (42-75); Platelet Morphology Comment Appears Adequate; Vacuoles SLIGHT
[2022-11-05] MEDS: Amiodarone 450 MG in Dextrose 5% in Water 250 ML IVPB SCH ×2 (13:23→13:28)
[2022-11-05] MEDS: hydrALAZINE 20 MG/ML VIAL SLOW IVP PRN ×2 (15:20→21:35)
[2022-11-05] MEDS ORDERED: Fentanyl CADD 100 ML ONE (20:56)
[2022-11-05] MEDS: Fentanyl CADD 100 ML IV SCH (21:00)
[2022-11-05] MEDS: Insulin Regular 300 UNITS/3 ML VIAL SC PRN (21:24)
[2022-11-06] MEDS: Morphine 2 MG/ML VIAL SLOW IVP PRN ×2 (00:05→23:30)
[2022-11-06] MEDS: Vecuronium 10 MG VIAL IV PRN ×2 (02:51→20:46)
[2022-11-06] MEDS: Lorazepam 2 MG/ML VIAL SLOW IVP PRN ×3 (04:05→21:21)
[2022-11-06 04:40] LABS: Anion Gap 12 mmol/L (10-20); BUN (Urea Nitrogen) 43 mg/dL (8.4-25.7); Calc. Creatinine Clearance 68 mL/min (70-130); Calcium 8.5 mg/dL (7.8-10.44); Carbon Dioxide 30 mmol/L (23-31); Chloride 100 mmol/L (98-107); Estimated GFR 70; Glucose 135 mg/dL (83-110); Potassium 5.1 mmol/L (3.5-5.1); Sodium 137 mmol/L (136-145)
[2022-11-06 04:44] LABS: ALT (SGPT) 154 U/L (8-55); AST (SGOT) 115 U/L (5-34); Albumin 3.2 g/dL (3.4-4.8); Alkaline Phosphatase 63 U/L (40-110); Bilirubin, Direct 0.5 mg/dL (0.1-0.3); Bilirubin, Total 0.6 mg/dL (0.2-1.2); Protein, Total 6.4 g/dL (5.8-8.1)
[2022-11-06 05:15] LABS: Anisocytosis SLIGHT = 6-15 cells (100X) (0-5/hpf); Band 2 % (5-11); Hemoglobin 12.8 g/dL (14.0-18.0); Lymphocytes 5 % (21-51); MDiff Complete? YES; Mean Corpuscular HGB CONC 31.3 g/dL (32.0-36.0); Mean Corpuscular Hemoglobin 27.5 pg (27.0-31.0); Metamyelocyte 1 % (0-0); Monocytes 13 % (0-10); Neutrophil 79 % (42-75); Nucleated RBC 2 % (0); Platelet Count 327 10x3/uL (130-400); Platelet Morphology Comment Appears Adequate; RBC Distribution Width 15.8 % (11.5-14.5); Red Blood Cell (RBC) Count 4.65 mill/uL (4.70-6.10)
[2022-11-06] MEDS: Amiodarone 450 MG in Dextrose 5% in Water 250 ML IVPB SCH ×2 (07:05→20:13)
[2022-11-06] MEDS ORDERED: Sodium Chloride 0.9% 500 ML IV SCH (07:30)
[2022-11-06] MEDS: Ipratropium/Albuterol 3 ML NEB NEB SCH ×4 (08:15→23:56)
[2022-11-06] MEDS: Propofol 1,000 MG/100 ML VIAL IV PRN (09:19)
[2022-11-06] MEDS: Aspirin Chewable 81 MG TAB PO SCH (09:31)
[2022-11-06] MEDS: methylPREDNISolone Sod Succ 40 MG VIAL IVP SCH (09:31)
[2022-11-06] MEDS: Furosemide 20 MG/2 ML VIAL SLOW IVP SCH (09:31)
[2022-11-06] MEDS: cefTRIAXone\\ROCEPHIN 2 GM in Sodium Chloride 0.9% 100 ML IVPB SCH (09:31)
[2022-11-06] MEDS: Polyethylene Glycol 3350 17 GM Packet PER TUBE SCH (09:32)
[2022-11-06] MEDS: Pantoprazole 40 MG VIAL IVP SCH ×2 (09:37→20:09)
[2022-11-06] MEDS ORDERED: VANCOMYCIN IVPB PRN (12:12)
[2022-11-06] MEDS ORDERED: Piperacillin/Tazobactam 3.375 GM in Sodium Chloride 0.9% 100 ML IVPB SCH (12:15)
[2022-11-06] MEDS ORDERED: VANCOMYCIN 1.75 GM/500 ML BAG 1.75 GM in Premix Bag 1 BAG IVPB SCH (12:30)
[2022-11-06] MEDS: Piperacillin/Tazobactam 3.375 GM in Sodium Chloride 0.9% 100 ML IVPB SCH (16:00)
[2022-11-06] MEDS: Fentanyl CADD 100 ML IV SCH (17:00)
[2022-11-06] MEDS ORDERED: Lactated Ringer's 500 ML IV SCH (19:45)
[2022-11-06] MEDS ORDERED: Albumin 25% 25 GM/100 ML BOT IVPB SCH (20:00)
[2022-11-06] MEDS: Thiamine HCl 200 MG/2 ML VIAL SLOW IVP SCH (20:09)
[2022-11-06] MEDS: hydrALAZINE 20 MG/ML VIAL SLOW IVP PRN (21:52)
[2022-11-06] MEDS: Labetalol HCl 100 MG/20 ML VIAL SLOW IVP PRN (22:33)
[2022-11-07] MEDS: Piperacillin/Tazobactam 3.375 GM in Sodium Chloride 0.9% 100 ML IVPB SCH ×3 (00:19→14:58)
[2022-11-07] MEDS: Vancomycin HCl 750 MG in Sodium Chloride 0.9% 250 ML 250 ML IVPB SCH ×2 (00:20→13:28)
[2022-11-07] MEDS: Lorazepam 2 MG/ML VIAL SLOW IVP PRN ×3 (00:56→14:59)
[2022-11-07] MEDS: Vecuronium 10 MG VIAL IV PRN ×2 (00:56→06:37)
[2022-11-07] MEDS: Dexmedetomidine 1,000 MCG in Sodium Chloride 0.9% 250 ML 240 ML IVPB SCH ×2 (04:18→15:11)
[2022-11-07 04:34] LABS: Mean Corpuscular HGB CONC 31.5 g/dL (32.0-36.0); Mean Corpuscular Hemoglobin 27.6 pg (27.0-31.0); Mean Corpuscular Volume 87.5 fl (78.0-98.0); Mean Platelet Volume 9.3 fL (7.4-10.4); Platelet Count 218 10x3/uL (130-400); RBC Distribution Width 15.6 % (11.5-14.5); Red Blood Cell (RBC) Count 3.62 mill/uL (4.70-6.10); White Blood Cell (WBC) Count 11.7 10x3/uL (4.8-10.8)
[2022-11-07 04:45] LABS: Anion Gap 8 mmol/L (10-20); BUN (Urea Nitrogen) 49 mg/dL (8.4-25.7); Calc. Creatinine Clearance 61 mL/min (70-130); Calcium 7.8 mg/dL (7.8-10.44); Carbon Dioxide 32 mmol/L (23-31); Chloride 100 mmol/L (98-107); Estimated GFR 63; Glucose 116 mg/dL (83-110); Potassium 4.7 mmol/L (3.5-5.1); Sodium 135 mmol/L (136-145)
[2022-11-07] MEDS ORDERED: Sterile Water 10 ML VIAL FS PRN (05:00)
[2022-11-07] MEDS: Ipratropium/Albuterol 3 ML NEB NEB SCH ×4 (08:08→23:22)
[2022-11-07] MEDS: Labetalol HCl 100 MG/20 ML VIAL SLOW IVP PRN (08:30)
[2022-11-07] MEDS: Pantoprazole 40 MG VIAL IVP SCH ×2 (08:33→21:35)
[2022-11-07] MEDS: Acetaminophen 325 MG TAB PO PRN (08:34)
[2022-11-07] MEDS: Polyethylene Glycol 3350 17 GM Packet PER TUBE SCH (08:35)
[2022-11-07] MEDS: Aspirin Chewable 81 MG TAB PO SCH (08:35)
[2022-11-07] MEDS: methylPREDNISolone Sod Succ 40 MG VIAL IVP SCH (08:36)
[2022-11-07] MEDS ORDERED: Furosemide 40 MG/4 ML VIAL IVP SCH (08:52)
[2022-11-07] MEDS ORDERED: niCARdipine 25 MG in Sodium Chloride 0.9% 250 ML 250 ML IVPB SCH (09:30)
[2022-11-07] MEDS: Lorazepam 2 MG/ML VIAL SLOW IVP SCH ×4 (10:48→21:29)
[2022-11-07] MEDS: Amiodarone 450 MG in Dextrose 5% in Water 250 ML IVPB SCH (12:16)
[2022-11-07 12:41] LABS: Vancomycin, Trough 13.6 ug/mL
[2022-11-07] MEDS: Thiamine HCl 200 MG/2 ML VIAL SLOW IVP SCH (21:28)
[2022-11-08] MEDS: Lorazepam 2 MG/ML VIAL SLOW IVP PRN ×3 (00:02→08:21)
[2022-11-08] MEDS: Piperacillin/Tazobactam 3.375 GM in Sodium Chloride 0.9% 100 ML IVPB SCH ×3 (00:25→17:47)
[2022-11-08] MEDS: Dexmedetomidine 1,000 MCG in Sodium Chloride 0.9% 250 ML 240 ML IVPB SCH (00:25)
[2022-11-08] MEDS: Lorazepam 2 MG/ML VIAL SLOW IVP SCH ×4 (00:58→13:47)
[2022-11-08] MEDS: Vancomycin HCl 750 MG in Sodium Chloride 0.9% 250 ML 250 ML IVPB SCH ×2 (01:01→13:46)
[2022-11-08] MEDS: Amiodarone 450 MG in Dextrose 5% in Water 250 ML IVPB SCH (04:11)
[2022-11-08 05:21] LABS: Anion Gap 11 mmol/L (10-20); BUN (Urea Nitrogen) 48 mg/dL (8.4-25.7); Calc. Creatinine Clearance 61 mL/min (70-130); Calcium 7.9 mg/dL (7.8-10.44); Carbon Dioxide 30 mmol/L (23-31); Chloride 101 mmol/L (98-107); Estimated GFR 67; Glucose 117 mg/dL (83-110); Potassium 4.5 mmol/L (3.5-5.1); Sodium 137 mmol/L (136-145)
[2022-11-08 05:46] LABS: Anisocytosis SLIGHT = 6-15 cells (100X) (0-5/hpf); Hemoglobin 10.6 g/dL (14.0-18.0); Lymphocytes 7 % (21-51); MDiff Complete? YES; Mean Corpuscular HGB CONC 32.8 g/dL (32.0-36.0); Mean Corpuscular Hemoglobin 28.3 pg (27.0-31.0); Mean Corpuscular Volume 86.2 fl (78.0-98.0); Mean Platelet Volume 9.4 fL (7.4-10.4); Monocytes 12 % (0-10); Neutrophil 81 % (42-75); Platelet Count 240 10x3/uL (130-400); Platelet Morphology Comment Appears Adequate; RBC Distribution Width 15.4 % (11.5-14.5); Red Blood Cell (RBC) Count 3.74 mill/uL (4.70-6.10); White Blood Cell (WBC) Count 13.8 10x3/uL (4.8-10.8)
[2022-11-08] MEDS: Ipratropium/Albuterol 3 ML NEB NEB SCH ×4 (07:39→23:58)
[2022-11-08] MEDS: Aspirin Chewable 81 MG TAB PO SCH (08:28)
[2022-11-08] MEDS: Acetaminophen 325 MG TAB PO PRN (08:28)
[2022-11-08] MEDS: Polyethylene Glycol 3350 17 GM Packet PER TUBE SCH (08:30)
[2022-11-08] MEDS: methylPREDNISolone Sod Succ 40 MG VIAL IVP SCH (08:30)
[2022-11-08] MEDS: Pantoprazole 40 MG VIAL IVP SCH ×2 (08:30→21:11)
[2022-11-08] MEDS: Morphine 2 MG/ML VIAL SLOW IVP PRN ×2 (08:37→19:51)
[2022-11-08] MEDS ORDERED: Midazolam In 0.9 % NaCl/PF 100 ML IVPB SCH (08:45)
[2022-11-08] MEDS ORDERED: Haloperidol Lactate 5 MG/ML VIAL ONE (08:55)
[2022-11-08] MEDS: Haloperidol Lactate 5 MG/ML VIAL IM SCH ×5 (09:00→23:48)
[2022-11-08] MEDS ORDERED: Furosemide 40 MG/4 ML VIAL IVP SCH (15:57)
[2022-11-08] MEDS: Thiamine HCl 200 MG/2 ML VIAL SLOW IVP SCH (20:54)
[2022-11-09 00:12] LABS: Vancomycin, Trough 15.3 ug/mL
[2022-11-09] MEDS: Piperacillin/Tazobactam 3.375 GM in Sodium Chloride 0.9% 100 ML IVPB SCH ×3 (00:49→17:14)
[2022-11-09] MEDS: Vancomycin HCl 750 MG in Sodium Chloride 0.9% 250 ML 250 ML IVPB SCH ×2 (01:35→14:04)
[2022-11-09] MEDS: Haloperidol Lactate 5 MG/ML VIAL IM SCH ×6 (04:00→21:37)
[2022-11-09] MEDS: Lorazepam 2 MG/ML VIAL SLOW IVP PRN (04:45)
[2022-11-09 07:30] LABS: Hemoglobin 10.8 g/dL (14.0-18.0); Mean Corpuscular HGB CONC 33.7 g/dL (32.0-36.0); Mean Corpuscular Volume 86.1 fl (78.0-98.0); Mean Platelet Volume 9.3 fL (7.4-10.4); Platelet Count 257 10x3/uL (130-400); RBC Distribution Width 15.3 % (11.5-14.5); Red Blood Cell (RBC) Count 3.72 mill/uL (4.70-6.10); White Blood Cell (WBC) Count 14.7 10x3/uL (4.8-10.8)
[2022-11-09 07:33] LABS: ALT (SGPT) 138 U/L (8-55); AST (SGOT) 71 U/L (5-34); Albumin 2.8 g/dL (3.4-4.8); Alkaline Phosphatase 74 U/L (40-110); Anion Gap 12 mmol/L (10-20); BUN (Urea Nitrogen) 56 mg/dL (8.4-25.7); Bilirubin, Total 0.6 mg/dL (0.2-1.2); Calc. Creatinine Clearance 49 mL/min (70-130); Calcium 7.9 mg/dL (7.8-10.44); Carbon Dioxide 28 mmol/L (23-31); Chloride 102 mmol/L (98-107); Estimated GFR 54; Globulin 2.6 g/dL (2.4-3.5); Glucose 98 mg/dL (83-110); Potassium 4.2 mmol/L (3.5-5.1); Protein, Total 5.4 g/dL (5.8-8.1); Sodium 138 mmol/L (136-145)
[2022-11-09] MEDS: Ipratropium/Albuterol 3 ML NEB NEB SCH ×4 (08:00→23:57)
[2022-11-09 08:36] LABS: Band 3 % (5-11); Eosinophils 2 % (0-10); Lymphocytes 14 % (21-51); MDiff Complete? YES; Monocytes 7 % (0-10); Myelocyte 1 % (0-0); Neutrophil 73 % (42-75); Platelet Morphology Comment Appears Adequate; Polychromasia SLIGHT = 2-3 cells (100X) (0-2/hpf)
[2022-11-09] MEDS: Aspirin Chewable 81 MG TAB PO SCH (09:23)
[2022-11-09] MEDS: methylPREDNISolone Sod Succ 40 MG VIAL IVP SCH (09:24)
[2022-11-09] MEDS: Polyethylene Glycol 3350 17 GM Packet PER TUBE SCH (09:26)
[2022-11-09] MEDS: Pantoprazole 40 MG VIAL IVP SCH ×2 (09:26→20:33)
[2022-11-09] MEDS: Morphine 2 MG/ML VIAL SLOW IVP PRN ×3 (13:58→23:17)
[2022-11-09] MEDS ORDERED: Furosemide 40 MG/4 ML VIAL SLOW IVP SCH (14:00)
[2022-11-09] MEDS: Dexmedetomidine 1,000 MCG in Sodium Chloride 0.9% 250 ML 240 ML IVPB SCH (17:15)
[2022-11-09] MEDS: Thiamine HCl 200 MG/2 ML VIAL SLOW IVP SCH (20:33)
[2022-11-09] MEDS: hydrALAZINE 20 MG/ML VIAL SLOW IVP PRN (22:33)
[2022-11-09] MEDS: Labetalol HCl 100 MG/20 ML VIAL SLOW IVP PRN (23:24)
[2022-11-10] MEDS: Piperacillin/Tazobactam 3.375 GM in Sodium Chloride 0.9% 100 ML IVPB SCH ×4 (00:25→23:42)
[2022-11-10] MEDS: Haloperidol Lactate 5 MG/ML VIAL IM SCH ×6 (00:26→20:21)
[2022-11-10] MEDS: Vancomycin HCl 750 MG in Sodium Chloride 0.9% 250 ML 250 ML IVPB SCH (01:34)
[2022-11-10] MEDS: Ipratropium/Albuterol 3 ML NEB NEB SCH ×4 (07:50→23:58)
[2022-11-10] MEDS: Aspirin Chewable 81 MG TAB PO SCH (09:00)
[2022-11-10] MEDS: methylPREDNISolone Sod Succ 40 MG VIAL IVP SCH (10:47)
[2022-11-10] MEDS: Pantoprazole 40 MG VIAL IVP SCH (10:49)
[2022-11-10] MEDS: Polyethylene Glycol 3350 17 GM Packet PER TUBE SCH (11:34)
[2022-11-10] MEDS: VORICONAZOLE IVPB SCH ×2 (11:35→23:38)
[2022-11-10] MEDS: SODIUM CHLORIDE 0.9% IVPB SCH ×2 (11:35→23:38)
[2022-11-10 12:46] LABS: Vancomycin, Trough 14.9 ug/mL
[2022-11-10 13:05] LABS: HIV (1/2) Antibody/Antigen Non-Reactive (NonReactive)
[2022-11-10] MEDS ORDERED: Metoprolol Tartrate 25 MG TAB PO SCH (14:15)
[2022-11-10] MEDS: Lorazepam 1 MG TAB PO SCH ×2 (17:00→23:09)
[2022-11-10] MEDS: Dexmedetomidine 1,000 MCG in Sodium Chloride 0.9% 250 ML 240 ML IVPB SCH (18:49)
[2022-11-10] MEDS: Metoprolol Tartrate 25 MG TAB PO SCH (21:11)
[2022-11-11] MEDS: Haloperidol Lactate 5 MG/ML VIAL IM SCH ×4 (00:28→12:13)
[2022-11-11] MEDS: Lorazepam 1 MG TAB PO SCH ×4 (05:43→22:24)
[2022-11-11] MEDS: Ipratropium/Albuterol 3 ML NEB NEB SCH ×2 (07:17→14:11)
[2022-11-11] MEDS: Piperacillin/Tazobactam 3.375 GM in Sodium Chloride 0.9% 100 ML IVPB SCH ×3 (08:51→23:41)
[2022-11-11] MEDS: Thiamine 100 MG TAB PO SCH (08:53)
[2022-11-11] MEDS: methylPREDNISolone Sod Succ 40 MG VIAL IVP SCH (08:53)
[2022-11-11] MEDS: Aspirin Chewable 81 MG TAB PO SCH (08:53)
[2022-11-11] MEDS: pyridOXINE 50 MG (B6) TAB PO SCH (08:53)
[2022-11-11] MEDS: Metoprolol Tartrate 25 MG TAB PO SCH ×2 (08:54→21:50)
[2022-11-11] MEDS: Lansoprazole 15 MG/5 ML (BATCHED)UDCUP PER TUBE SCH (08:55)
[2022-11-11] MEDS: Cyanocobalamin (Vitamin B-12) 1,000 MCG TAB PO SCH (08:55)
[2022-11-11] MEDS: Polyethylene Glycol 3350 17 GM Packet PER TUBE SCH (09:29)
[2022-11-11] MEDS: Acetaminophen 325 MG TAB PO PRN ×2 (12:13→22:24)
[2022-11-11] MEDS ORDERED: Furosemide 20 MG/2 ML VIAL SLOW IVP SCH (16:45)
[2022-11-11] MEDS: Arformoterol 15 MCG/2 ML NEB NEB SCH (18:18)
[2022-11-12] MEDS: Morphine 2 MG/ML VIAL SLOW IVP PRN ×2 (00:32→02:11)
[2022-11-12] MEDS: Dexmedetomidine 1,000 MCG in Sodium Chloride 0.9% 250 ML 240 ML IVPB SCH (03:50)
[2022-11-12 04:35] LABS: Hemoglobin 10.4 g/dL (14.0-18.0); Mean Corpuscular HGB CONC 32.2 g/dL (32.0-36.0); Mean Corpuscular Volume 86.9 fl (78.0-98.0); Mean Platelet Volume 8.9 fL (7.4-10.4); Platelet Count 334 10x3/uL (130-400); RBC Distribution Width 15.5 % (11.5-14.5); White Blood Cell (WBC) Count 21.5 10x3/uL (4.8-10.8)
[2022-11-12 04:50] LABS: Anion Gap 11 mmol/L (10-20); BUN (Urea Nitrogen) 47 mg/dL (8.4-25.7); Calc. Creatinine Clearance 52 mL/min (70-130); Calcium 8.1 mg/dL (7.8-10.44); Carbon Dioxide 29 mmol/L (23-31); Chloride 105 mmol/L (98-107); Estimated GFR 58; Glucose 118 mg/dL (83-110); Potassium 4.2 mmol/L (3.5-5.1); Sodium 141 mmol/L (136-145)
[2022-11-12 05:46] LABS: Anisocytosis SLIGHT = 6-15 cells (100X) (0-5/hpf); Large Platelets SLIGHT; Lymphocytes 9 % (21-51); MDiff Complete? YES; Monocytes 5 % (0-10); Neutrophil 86 % (42-75); Ovalocytes SLIGHT = 2-5 cells (100X) (0-1/hpf); Platelet Morphology Comment Appears Adequate
[2022-11-12] MEDS: Lorazepam 1 MG TAB PO SCH (05:57)
[2022-11-12] MEDS: Arformoterol 15 MCG/2 ML NEB NEB SCH ×2 (07:23→19:13)
[2022-11-12] MEDS: Piperacillin/Tazobactam 3.375 GM in Sodium Chloride 0.9% 100 ML IVPB SCH ×2 (08:28→19:03)
[2022-11-12] MEDS: Cyanocobalamin (Vitamin B-12) 1,000 MCG TAB PO SCH (08:42)
[2022-11-12] MEDS: Lorazepam 0.5 MG TAB PO SCH ×2 (08:43→20:50)
[2022-11-12] MEDS: Aspirin Chewable 81 MG TAB PO SCH (08:43)
[2022-11-12] MEDS: Thiamine 100 MG TAB PO SCH (08:43)
[2022-11-12] MEDS: pyridOXINE 50 MG (B6) TAB PO SCH (08:43)
[2022-11-12] MEDS: Metoprolol Tartrate 25 MG TAB PO SCH ×2 (08:43→20:50)
[2022-11-12] MEDS: Polyethylene Glycol 3350 17 GM Packet PER TUBE SCH (08:44)
[2022-11-12] MEDS: Lansoprazole 15 MG/5 ML (BATCHED)UDCUP PER TUBE SCH (08:44)
[2022-11-12] MEDS ORDERED: Amiodarone 150 MG, Admixture Fee 1 EACH in Dextrose 5% in Water 100 ML IVPB SCH (13:00)
[2022-11-12] MEDS: Amiodarone 450 MG in Dextrose 5% in Water 250 ML IVPB SCH ×2 (13:46→21:38)
[2022-11-13] MEDS: Piperacillin/Tazobactam 3.375 GM in Sodium Chloride 0.9% 100 ML IVPB SCH ×3 (03:22→20:07)
[2022-11-13 04:43] LABS: #Eosinphils 0.3 thou/uL (0.0-0.7); #Lymphocytes 2.8 thou/uL (1.20-3.40); #Monocytes 2.7 thou/uL (0.11-0.59); #Neutrophils 16.3 thou/uL (1.40-6.50); %Basophils 0.1 % (0.0-1.0); %Eosinophils 1.2 % (0.0-10.0); %Lymphocytes 12.5 % (21.0-51.0); %Monocytes 12.3 % (0.0-10.0); %Neutrophils 73.9 % (42.0-75.0); Hemoglobin 12.6 g/dL (14.0-18.0); Mean Corpuscular HGB CONC 31.9 g/dL (32.0-36.0); Mean Corpuscular Hemoglobin 27.6 pg (27.0-31.0); Mean Corpuscular Volume 86.4 fl (78.0-98.0); Mean Platelet Volume 8.2 fL (7.4-10.4); Platelet Count 421 10x3/uL (130-400); RBC Distribution Width 15.6 % (11.5-14.5); Red Blood Cell (RBC) Count 4.57 mill/uL (4.70-6.10); White Blood Cell (WBC) Count 22.1 10x3/uL (4.8-10.8)
[2022-11-13 05:03] LABS: Anion Gap 13 mmol/L (10-20); BUN (Urea Nitrogen) 33 mg/dL (8.4-25.7); Calc. Creatinine Clearance 58 mL/min (70-130); Calcium 8.2 mg/dL (7.8-10.44); Carbon Dioxide 28 mmol/L (23-31); Chloride 105 mmol/L (98-107); Estimated GFR 64; Glucose 115 mg/dL (83-110); Potassium 3.3 mmol/L (3.5-5.1); Sodium 143 mmol/L (136-145)
[2022-11-13] MEDS: Arformoterol 15 MCG/2 ML NEB NEB SCH ×2 (06:40→19:32)
[2022-11-13] MEDS: Aspirin Chewable 81 MG TAB PO SCH (09:08)
[2022-11-13] MEDS: Lansoprazole 15 MG/5 ML (BATCHED)UDCUP PER TUBE SCH (09:08)
[2022-11-13] MEDS: Cyanocobalamin (Vitamin B-12) 1,000 MCG TAB PO SCH (09:08)
[2022-11-13] MEDS: Polyethylene Glycol 3350 17 GM Packet PER TUBE SCH (09:09)
[2022-11-13] MEDS: Lorazepam 0.5 MG TAB PO SCH ×2 (09:09→20:32)
[2022-11-13] MEDS: Thiamine 100 MG TAB PO SCH (09:09)
[2022-11-13] MEDS: pyridOXINE 50 MG (B6) TAB PO SCH (09:09)
[2022-11-13] MEDS: Metoprolol Tartrate 25 MG TAB PO SCH ×2 (09:09→20:32)
[2022-11-13] MEDS: Amiodarone 450 MG in Dextrose 5% in Water 250 ML IVPB SCH (13:09)
[2022-11-13] MEDS ORDERED: Electrolyte Replacement Protocol 1 EACH FS SCH (16:00)
[2022-11-13] MEDS ORDERED: Potassium Chloride 40 MEQ in Premix Bag 1 BAG IVPB SCH (16:00)
[2022-11-13] MEDS: Melatonin 3 MG TAB PO PRN (22:38)
[2022-11-14] MEDS: Amiodarone 450 MG in Dextrose 5% in Water 250 ML IVPB SCH (03:23)
[2022-11-14] MEDS: Piperacillin/Tazobactam 3.375 GM in Sodium Chloride 0.9% 100 ML IVPB SCH ×3 (03:34→20:12)
[2022-11-14 04:51] LABS: #Eosinphils 0.5 thou/uL (0.0-0.7); #Lymphocytes 3.3 thou/uL (1.20-3.40); #Monocytes 2.4 thou/uL (0.11-0.59); #Neutrophils 13.5 thou/uL (1.40-6.50); %Basophils 0.1 % (0.0-1.0); %Eosinophils 2.4 % (0.0-10.0); %Lymphocytes 16.6 % (21.0-51.0); %Monocytes 12.2 % (0.0-10.0); %Neutrophils 68.7 % (42.0-75.0); Hemoglobin 9.8 g/dL (14.0-18.0); Mean Corpuscular HGB CONC 32.8 g/dL (32.0-36.0); Mean Corpuscular Hemoglobin 28.1 pg (27.0-31.0); Mean Corpuscular Volume 85.8 fl (78.0-98.0); Mean Platelet Volume 8.4 fL (7.4-10.4); Platelet Count 400 10x3/uL (130-400); RBC Distribution Width 15.9 % (11.5-14.5); Red Blood Cell (RBC) Count 3.49 mill/uL (4.70-6.10); White Blood Cell (WBC) Count 19.7 10x3/uL (4.8-10.8)
[2022-11-14 05:13] LABS: Anion Gap 27 mmol/L (10-20); BUN (Urea Nitrogen) 34 mg/dL (8.4-25.7); Calc. Creatinine Clearance 42 mL/min (70-130); Calcium 6.9 mg/dL (7.8-10.44); Carbon Dioxide 20 mmol/L (23-31); Chloride 107 mmol/L (98-107); Estimated GFR 46; Glucose 100 mg/dL (83-110); Sodium 151 mmol/L (136-145)
[2022-11-14] MEDS ORDERED: Potassium Bicarbonate/Cit Ac 20 MEQ TAB PER TUBE SCH (05:30)
[2022-11-14] MEDS: Arformoterol 15 MCG/2 ML NEB NEB SCH ×2 (06:29→18:28)
[2022-11-14 06:30] LABS: Magnesium 1.7 mg/dL (1.6-2.6)
[2022-11-14] MEDS ORDERED: Magnesium 2 GM/50 ML(in water) 2 GM in Premix Bag 1 BAG IVPB SCH (08:00)
[2022-11-14] MEDS: Lansoprazole 15 MG/5 ML (BATCHED)UDCUP PER TUBE SCH (10:06)
[2022-11-14] MEDS: Lorazepam 0.5 MG TAB PO SCH (10:07)
[2022-11-14] MEDS: pyridOXINE 50 MG (B6) TAB PO SCH (10:07)
[2022-11-14] MEDS: Thiamine 100 MG TAB PO SCH (10:07)
[2022-11-14] MEDS: Metoprolol Tartrate 25 MG TAB PO SCH ×3 (10:07→22:00)
[2022-11-14] MEDS: Aspirin Chewable 81 MG TAB PO SCH (10:07)
[2022-11-14] MEDS: Polyethylene Glycol 3350 17 GM Packet PER TUBE SCH (10:11)
[2022-11-14] MEDS: Cyanocobalamin (Vitamin B-12) 1,000 MCG TAB PO SCH (10:11)
[2022-11-14 10:25] LABS: Potassium 3.7 mmol/L (3.5-5.1)
[2022-11-14] MEDS ORDERED: Lactated Ringer's 500 ML IV SCH (14:30)
[2022-11-14 18:36] LABS: A. flavus Negative (Neg:<1:1); A. fumigatus Negative (Neg:<1:1); A. niger Negative (Neg:<1:1); Blastomyces AB Negative (Neg:<1:1)
[2022-11-14] MEDS: Dextrose 5% in Water 1,000 ML IV SCH (18:37)
[2022-11-14] MEDS: Acetaminophen 325 MG TAB PO PRN (18:38)
[2022-11-14] MEDS: Floranex 1 GM Packet PO SCH (20:13)
[2022-11-14] MEDS: Amiodarone 200 MG TAB PO SCH (20:14)
[2022-11-15] MEDS ORDERED: Albumin 25% 25 GM/100 ML BOT IVPB SCH ×2 (02:15→12:00)
[2022-11-15] MEDS ORDERED: Magnesium 2 GM/50 ML(in water) 2 GM in Premix Bag 1 BAG IVPB SCH (02:15)
[2022-11-15] MEDS: Piperacillin/Tazobactam 3.375 GM in Sodium Chloride 0.9% 100 ML IVPB SCH (02:28)
[2022-11-15] MEDS: Dextrose 5% in Water 1,000 ML IV SCH (03:47)
[2022-11-15 04:37] LABS: #Basophils 0.1 thou/uL (0.0-0.2); #Eosinphils 0.4 thou/uL (0.0-0.7); #Monocytes 1.2 thou/uL (0.11-0.59); #Neutrophils 11.4 thou/uL (1.40-6.50); %Basophils 0.4 % (0.0-1.0); %Eosinophils 2.4 % (0.0-10.0); %Lymphocytes 13.1 % (21.0-51.0); %Monocytes 7.7 % (0.0-10.0); %Neutrophils 76.4 % (42.0-75.0); Hemoglobin 10.7 g/dL (14.0-18.0); Mean Corpuscular HGB CONC 31.7 g/dL (32.0-36.0); Mean Corpuscular Hemoglobin 27.1 pg (27.0-31.0); Mean Corpuscular Volume 85.7 fl (78.0-98.0); Mean Platelet Volume 9.1 fL (7.4-10.4); Platelet Count 287 10x3/uL (130-400); RBC Distribution Width 16.3 % (11.5-14.5); Red Blood Cell (RBC) Count 3.93 mill/uL (4.70-6.10); White Blood Cell (WBC) Count 14.9 10x3/uL (4.8-10.8)
[2022-11-15 04:49] LABS: Phosphorus 3.1 mg/dL (2.3-4.7)
[2022-11-15 04:52] LABS: Anion Gap 12 mmol/L (10-20); BUN (Urea Nitrogen) 50 mg/dL (8.4-25.7); Calc. Creatinine Clearance 29 mL/min (70-130); Calcium 7.7 mg/dL (7.8-10.44); Carbon Dioxide 24 mmol/L (23-31); Chloride 103 mmol/L (98-107); Estimated GFR 30; Glucose 96 mg/dL (83-110); Magnesium 2.8 mg/dL (1.6-2.6); Potassium 3.4 mmol/L (3.5-5.1); Sodium 136 mmol/L (136-145)
[2022-11-15] MEDS ORDERED: Potassium Chloride 20 MEQ TAB PO SCH (05:15)
[2022-11-15] MEDS ORDERED: Potassium Chloride 20 MEQ TAB PER TUBE SCH (05:15)
[2022-11-15] MEDS ORDERED: Potassium Bicarbonate/Cit Ac 20 MEQ TAB PER TUBE SCH (05:30)
[2022-11-15 06:34] LABS: ALT (SGPT) 595 U/L (8-55); AST (SGOT) 761 U/L (5-34); Alkaline Phosphatase 72 U/L (40-110); Bilirubin, Direct 0.2 mg/dL (0.1-0.3); Bilirubin, Total 0.3 mg/dL (0.2-1.2); Protein, Total 5.6 g/dL (5.8-8.1)
[2022-11-15] MEDS: Arformoterol 15 MCG/2 ML NEB NEB SCH ×2 (07:15→18:40)
[2022-11-15 08:41] LABS: Bacteria/HPF 2+ HPF (None Seen); Bilirubin Negative (Negative); Blood, Urine 3+ (Negative); Clarity Turbid (Clear); Glucose, Urine (Dipstick) Normal (Negative); Ketone, Urine Negative (Negative); Leukocyte Negative Leu/uL (Negative); Nitrite Negative (Negative); Protein, Urine (Dipstick) 50 mg/dL (Neg-Trace); RBC/HPF 0-3 HPF (0-3); Squamous Epithelial 0-3 HPF (0-3); Urobilinogen Normal mg/dL (Less than 2); pH, Urine 5.5 (5.0-9.0)
[2022-11-15] MEDS: Lactated Ringer's 1,000 ML IV SCH ×2 (10:13→17:32)
[2022-11-15] MEDS: Floranex 1 GM Packet PO SCH ×2 (10:14→21:16)
[2022-11-15] MEDS: Thiamine 100 MG TAB PO SCH (10:14)
[2022-11-15] MEDS: Metoprolol Tartrate 25 MG TAB PO SCH ×2 (10:15→21:16)
[2022-11-15] MEDS: Aspirin Chewable 81 MG TAB PO SCH (10:15)
[2022-11-15] MEDS: Cyanocobalamin (Vitamin B-12) 1,000 MCG TAB PO SCH (10:15)
[2022-11-15] MEDS: Amiodarone 200 MG TAB PO SCH ×2 (10:15→21:16)
[2022-11-15] MEDS: Lansoprazole 15 MG/5 ML (BATCHED)UDCUP PER TUBE SCH (10:16)
[2022-11-15] MEDS: pyridOXINE 50 MG (B6) TAB PO SCH (10:16)
[2022-11-15] MEDS: Polyethylene Glycol 3350 17 GM Packet PER TUBE SCH (10:17)
[2022-11-15 11:43] LABS: Potassium 3.8 mmol/L (3.5-5.1)
[2022-11-15 11:56] LABS: Creatinine, Urine Less than 20.00 mg/dL (63-166)
[2022-11-15 14:10] LABS: Campy jejuni + coli by PCR Negative (Negative); STEC Shiga Toxin 1+2 Negative (Negative); Salmonella spp. by PCR Negative (Negative); Shigella spp + EIEC by PCR Negative (Negative)
[2022-11-15] MEDS: QUEtiapine 25 MG TAB PO SCH (21:16)
[2022-11-15] MEDS ORDERED: Sodium Bicarbonate Tab 325 MG TAB PER TUBE PRN (23:00)
[2022-11-15] MEDS: Pancrelipase DR 12,000 1 CAP FS PRN (23:20)
[2022-11-16] MEDS: Pancrelipase DR 12,000 1 CAP FS PRN (03:16)
[2022-11-16 05:02] LABS: #Eosinphils 0.3 thou/uL (0.0-0.7); #Lymphocytes 1.3 thou/uL (1.20-3.40); #Monocytes 0.9 thou/uL (0.11-0.59); #Neutrophils 10.6 thou/uL (1.40-6.50); %Basophils 0.3 % (0.0-1.0); %Eosinophils 2.2 % (0.0-10.0); %Lymphocytes 9.9 % (21.0-51.0); %Monocytes 6.6 % (0.0-10.0); %Neutrophils 80.9 % (42.0-75.0); Hemoglobin 9.6 g/dL (14.0-18.0); Mean Corpuscular HGB CONC 32.7 g/dL (32.0-36.0); Mean Corpuscular Hemoglobin 28.1 pg (27.0-31.0); Mean Corpuscular Volume 86.1 fl (78.0-98.0); Platelet Count 277 10x3/uL (130-400); White Blood Cell (WBC) Count 13.1 10x3/uL (4.8-10.8)
[2022-11-16] MEDS: Lactated Ringer's 1,000 ML IV SCH (05:20)
[2022-11-16 05:32] LABS: ALT (SGPT) 474 U/L (8-55); AST (SGOT) 476 U/L (5-34); Albumin 2.9 g/dL (3.4-4.8); Alkaline Phosphatase 69 U/L (40-110); Anion Gap 12 mmol/L (10-20); BUN (Urea Nitrogen) 36 mg/dL (8.4-25.7); Bilirubin, Total 0.7 mg/dL (0.2-1.2); Calc. Creatinine Clearance 38 mL/min (70-130); Calcium 7.7 mg/dL (7.8-10.44); Carbon Dioxide 23 mmol/L (23-31); Chloride 104 mmol/L (98-107); Estimated GFR 40; Globulin 2.5 g/dL (2.4-3.5); Glucose 73 mg/dL (83-110); Phosphorus 2.9 mg/dL (2.3-4.7); Potassium 3.8 mmol/L (3.5-5.1); Protein, Total 5.4 g/dL (5.8-8.1); Sodium 135 mmol/L (136-145)
[2022-11-16] MEDS: Arformoterol 15 MCG/2 ML NEB NEB SCH ×2 (06:34→18:30)
[2022-11-16] MEDS: Metoprolol Tartrate 25 MG TAB PO SCH ×2 (08:58→21:27)
[2022-11-16] MEDS: Floranex 1 GM Packet PO SCH ×2 (08:58→21:18)
[2022-11-16] MEDS: Aspirin Chewable 81 MG TAB PO SCH (08:59)
[2022-11-16] MEDS: pyridOXINE 50 MG (B6) TAB PO SCH (08:59)
[2022-11-16] MEDS: Lansoprazole 15 MG/5 ML (BATCHED)UDCUP PER TUBE SCH (09:00)
[2022-11-16] MEDS: Cyanocobalamin (Vitamin B-12) 1,000 MCG TAB PO SCH (09:00)
[2022-11-16] MEDS: Amiodarone 200 MG TAB PO SCH ×2 (09:00→21:27)
[2022-11-16] MEDS: Thiamine 100 MG TAB PO SCH (09:00)
[2022-11-16] MEDS ORDERED: Furosemide 40 MG/4 ML VIAL SLOW IVP SCH (10:30)
[2022-11-16] MEDS: Albumin 25% 25 GM/100 ML BOT IVPB SCH ×2 (11:09→18:05)
[2022-11-16] MEDS ORDERED: Piperacillin/Tazobactam 3.375 GM in Sodium Chloride 0.9% 100 ML IVPB SCH ×2 (18:30→18:45)
[2022-11-16] MEDS: QUEtiapine 25 MG TAB PO SCH (21:27)
[2022-11-17] MEDS: Albumin 25% 25 GM/100 ML BOT IVPB SCH ×2 (00:17→05:42)
[2022-11-17] MEDS: Piperacillin/Tazobactam 3.375 GM in Sodium Chloride 0.9% 100 ML IVPB SCH ×3 (00:30→15:00)
[2022-11-17 04:35] LABS: #Eosinphils 0.3 thou/uL (0.0-0.7); #Lymphocytes 0.7 thou/uL (1.20-3.40); #Monocytes 0.5 thou/uL (0.11-0.59); #Neutrophils 5.9 thou/uL (1.40-6.50); %Basophils 0.1 % (0.0-1.0); %Eosinophils 3.7 % (0.0-10.0); %Lymphocytes 9.3 % (21.0-51.0); %Monocytes 7.2 % (0.0-10.0); %Neutrophils 79.7 % (42.0-75.0); Hemoglobin 8.2 g/dL (14.0-18.0); Mean Corpuscular HGB CONC 32.1 g/dL (32.0-36.0); Mean Corpuscular Hemoglobin 27.4 pg (27.0-31.0); Mean Corpuscular Volume 85.1 fl (78.0-98.0); Mean Platelet Volume 9.2 fL (7.4-10.4); Platelet Count 228 10x3/uL (130-400); Red Blood Cell (RBC) Count 2.98 mill/uL (4.70-6.10); White Blood Cell (WBC) Count 7.4 10x3/uL (4.8-10.8)
[2022-11-17 04:58] LABS: Anion Gap 14 mmol/L (10-20); BUN (Urea Nitrogen) 30 mg/dL (8.4-25.7); Calc. Creatinine Clearance 35 mL/min (70-130); Calcium 7.9 mg/dL (7.8-10.44); Carbon Dioxide 24 mmol/L (23-31); Chloride 101 mmol/L (98-107); Estimated GFR 36; Glucose 128 mg/dL (83-110); Potassium 3.5 mmol/L (3.5-5.1); Sodium 135 mmol/L (136-145)
[2022-11-17] MEDS: Arformoterol 15 MCG/2 ML NEB NEB SCH ×2 (06:56→19:00)
[2022-11-17] MEDS ORDERED: Potassium Chloride 20 MEQ TAB PO SCH (08:00)
[2022-11-17] MEDS: pyridOXINE 50 MG (B6) TAB PO SCH (08:55)
[2022-11-17] MEDS: Metoprolol Tartrate 25 MG TAB PO SCH ×2 (08:55→20:13)
[2022-11-17] MEDS: Thiamine 100 MG TAB PO SCH (08:55)
[2022-11-17] MEDS: Aspirin Chewable 81 MG TAB PO SCH (08:55)
[2022-11-17] MEDS: Amiodarone 200 MG TAB PO SCH ×2 (08:55→20:13)
[2022-11-17] MEDS: Lansoprazole 15 MG/5 ML (BATCHED)UDCUP PER TUBE SCH (08:56)
[2022-11-17] MEDS: Floranex 1 GM Packet PO SCH ×2 (08:56→20:12)
[2022-11-17] MEDS: Metamucil PACK PER TUBE SCH (09:12)
[2022-11-17] MEDS: Cyanocobalamin (Vitamin B-12) 1,000 MCG TAB PO SCH (09:12)
[2022-11-17] MEDS: QUEtiapine 25 MG TAB PO SCH (20:13)
[2022-11-18] MEDS: Piperacillin/Tazobactam 3.375 GM in Sodium Chloride 0.9% 100 ML IVPB SCH ×4 (00:25→23:59)
[2022-11-18 07:42] LABS: #Eosinphils 0.4 thou/uL (0.0-0.7); #Lymphocytes 0.9 thou/uL (1.20-3.40); #Monocytes 0.8 thou/uL (0.11-0.59); #Neutrophils 6.1 thou/uL (1.40-6.50); %Basophils 0.4 % (0.0-1.0); %Eosinophils 5.1 % (0.0-10.0); %Lymphocytes 10.6 % (21.0-51.0); %Monocytes 9.7 % (0.0-10.0); %Neutrophils 74.2 % (42.0-75.0); Hemoglobin 10.2 g/dL (14.0-18.0); Mean Corpuscular Hemoglobin 28.6 pg (27.0-31.0); Mean Corpuscular Volume 86.6 fl (78.0-98.0); Mean Platelet Volume 8.6 fL (7.4-10.4); Platelet Count 254 10x3/uL (130-400); Red Blood Cell (RBC) Count 3.57 mill/uL (4.70-6.10); White Blood Cell (WBC) Count 8.2 10x3/uL (4.8-10.8)
[2022-11-18] MEDS: Arformoterol 15 MCG/2 ML NEB NEB SCH ×2 (07:47→18:58)
[2022-11-18] MEDS: Floranex 1 GM Packet PO SCH ×2 (08:13→21:05)
[2022-11-18] MEDS: Metamucil PACK PER TUBE SCH (08:13)
[2022-11-18] MEDS: Lansoprazole 15 MG/5 ML (BATCHED)UDCUP PER TUBE SCH (08:14)
[2022-11-18] MEDS: Aspirin Chewable 81 MG TAB PO SCH (08:14)
[2022-11-18] MEDS: Thiamine 100 MG TAB PO SCH (08:14)
[2022-11-18] MEDS: pyridOXINE 50 MG (B6) TAB PO SCH (08:14)
[2022-11-18] MEDS: Metoprolol Tartrate 25 MG TAB PO SCH ×2 (08:14→21:06)
[2022-11-18] MEDS: Cyanocobalamin (Vitamin B-12) 1,000 MCG TAB PO SCH (08:14)
[2022-11-18] MEDS: Amiodarone 200 MG TAB PO SCH ×2 (08:14→21:06)
[2022-11-18 08:15] LABS: Anion Gap 15 mmol/L (10-20); BUN (Urea Nitrogen) 22 mg/dL (8.4-25.7); Calc. Creatinine Clearance 38 mL/min (70-130); Calcium 8.5 mg/dL (7.8-10.44); Carbon Dioxide 21 mmol/L (23-31); Chloride 105 mmol/L (98-107); Estimated GFR 40; Glucose 122 mg/dL (83-110); Potassium 4.4 mmol/L (3.5-5.1); Sodium 137 mmol/L (136-145)
[2022-11-18] MEDS ORDERED: Ipratropium/Albuterol 3 ML NEB NEB PRN (12:03)
[2022-11-18] MEDS ORDERED: Furosemide 20 MG/2 ML VIAL SLOW IVP SCH (12:15)
[2022-11-18] MEDS: Budesonide 0.5 MG/2 ML NEB NEB SCH (18:58)
[2022-11-18] MEDS: QUEtiapine 25 MG TAB PO SCH (21:05)
[2022-11-18] MEDS: Melatonin 3 MG TAB PO PRN (21:06)
[2022-11-19 04:24] LABS: #Eosinphils 0.4 thou/uL (0.0-0.7); #Lymphocytes 0.8 thou/uL (1.20-3.40); #Monocytes 0.6 thou/uL (0.11-0.59); #Neutrophils 4.2 thou/uL (1.40-6.50); %Basophils 0.3 % (0.0-1.0); %Eosinophils 7.1 % (0.0-10.0); %Lymphocytes 12.5 % (21.0-51.0); %Monocytes 10.6 % (0.0-10.0); %Neutrophils 69.5 % (42.0-75.0); Hemoglobin 9.6 g/dL (14.0-18.0); Mean Corpuscular HGB CONC 33.7 g/dL (32.0-36.0); Mean Corpuscular Hemoglobin 29.2 pg (27.0-31.0); Mean Corpuscular Volume 86.7 fl (78.0-98.0); Mean Platelet Volume 8.8 fL (7.4-10.4); Platelet Count 242 10x3/uL (130-400); Red Blood Cell (RBC) Count 3.29 mill/uL (4.70-6.10); White Blood Cell (WBC) Count 6.1 10x3/uL (4.8-10.8)
[2022-11-19 04:45] LABS: Anion Gap 14 mmol/L (10-20); BUN (Urea Nitrogen) 24 mg/dL (8.4-25.7); Calc. Creatinine Clearance 34 mL/min (70-130); Calcium 8.6 mg/dL (7.8-10.44); Carbon Dioxide 29 mmol/L (23-31); Chloride 102 mmol/L (98-107); Estimated GFR 35; Glucose 142 mg/dL (83-110); Potassium 4.3 mmol/L (3.5-5.1); Sodium 141 mmol/L (136-145)
[2022-11-19] MEDS: Budesonide 0.5 MG/2 ML NEB NEB SCH ×2 (07:33→18:36)
[2022-11-19] MEDS: Arformoterol 15 MCG/2 ML NEB NEB SCH ×2 (07:33→18:35)
[2022-11-19] MEDS: Metoprolol Tartrate 25 MG TAB PO SCH ×2 (08:51→20:08)
[2022-11-19] MEDS: Aspirin Chewable 81 MG TAB PO SCH (08:51)
[2022-11-19] MEDS: Thiamine 100 MG TAB PO SCH (08:51)
[2022-11-19] MEDS: Cyanocobalamin (Vitamin B-12) 1,000 MCG TAB PO SCH (08:51)
[2022-11-19] MEDS: Amiodarone 200 MG TAB PO SCH ×2 (08:55→20:08)
[2022-11-19] MEDS: Lansoprazole 15 MG/5 ML (BATCHED)UDCUP PER TUBE SCH (08:55)
[2022-11-19] MEDS: pyridOXINE 50 MG (B6) TAB PO SCH (08:55)
[2022-11-19] MEDS: Piperacillin/Tazobactam 3.375 GM in Sodium Chloride 0.9% 100 ML IVPB SCH ×2 (08:56→15:42)
[2022-11-19] MEDS: Furosemide 20 MG/2 ML VIAL SLOW IVP SCH (08:56)
[2022-11-19] MEDS: Floranex 1 GM Packet PO SCH ×2 (08:56→20:08)
[2022-11-19] MEDS: Metamucil PACK PER TUBE SCH (08:57)
[2022-11-19] MEDS: QUEtiapine 25 MG TAB PO SCH (20:08)
[2022-11-19] MEDS: Melatonin 3 MG TAB PO PRN (20:09)
[2022-11-20] MEDS: Piperacillin/Tazobactam 3.375 GM in Sodium Chloride 0.9% 100 ML IVPB SCH (00:37)
[2022-11-20 04:24] LABS: #Eosinphils 0.5 thou/uL (0.0-0.7); #Lymphocytes 0.8 thou/uL (1.20-3.40); #Monocytes 0.6 thou/uL (0.11-0.59); #Neutrophils 3.5 thou/uL (1.40-6.50); %Basophils 0.6 % (0.0-1.0); %Lymphocytes 14.4 % (21.0-51.0); %Monocytes 10.7 % (0.0-10.0); %Neutrophils 64.4 % (42.0-75.0); Hemoglobin 10.4 g/dL (14.0-18.0); Mean Corpuscular HGB CONC 32.4 g/dL (32.0-36.0); Mean Corpuscular Volume 86.6 fl (78.0-98.0); Mean Platelet Volume 8.3 fL (7.4-10.4); Platelet Count 273 10x3/uL (130-400); RBC Distribution Width 15.9 % (11.5-14.5); Red Blood Cell (RBC) Count 3.71 mill/uL (4.70-6.10); White Blood Cell (WBC) Count 5.4 10x3/uL (4.8-10.8)
[2022-11-20 04:48] LABS: ALT (SGPT) 183 U/L (8-55); AST (SGOT) 109 U/L (5-34); Albumin 3.4 g/dL (3.4-4.8); Alkaline Phosphatase 102 U/L (40-110); Anion Gap 14 mmol/L (10-20); BUN (Urea Nitrogen) 27 mg/dL (8.4-25.7); Bilirubin, Total 0.5 mg/dL (0.2-1.2); Calc. Creatinine Clearance 0 mL/min (70-130); Calcium 8.7 mg/dL (7.8-10.44); Carbon Dioxide 28 mmol/L (23-31); Chloride 101 mmol/L (98-107); Estimated GFR 35; Globulin 3.1 g/dL (2.4-3.5); Glucose 119 mg/dL (83-110); Potassium 4.3 mmol/L (3.5-5.1); Protein, Total 6.5 g/dL (5.8-8.1); Sodium 139 mmol/L (136-145)
[2022-11-20] MEDS: Budesonide 0.5 MG/2 ML NEB NEB SCH ×2 (06:41→18:47)
[2022-11-20] MEDS: Arformoterol 15 MCG/2 ML NEB NEB SCH ×2 (06:42→18:47)
[2022-11-20] MEDS: Amiodarone 200 MG TAB PO SCH ×2 (09:26→20:25)
[2022-11-20] MEDS: Lansoprazole 15 MG/5 ML (BATCHED)UDCUP PER TUBE SCH (09:26)
[2022-11-20] MEDS: Aspirin Chewable 81 MG TAB PO SCH (09:26)
[2022-11-20] MEDS: Metoprolol Tartrate 25 MG TAB PO SCH ×2 (09:26→20:25)
[2022-11-20] MEDS: Cyanocobalamin (Vitamin B-12) 1,000 MCG TAB PO SCH (09:26)
[2022-11-20] MEDS: Thiamine 100 MG TAB PO SCH (09:26)
[2022-11-20] MEDS: pyridOXINE 50 MG (B6) TAB PO SCH (09:26)
[2022-11-20] MEDS: Floranex 1 GM Packet PO SCH ×2 (09:27→21:07)
[2022-11-20] MEDS: Metamucil PACK PER TUBE SCH (09:27)
[2022-11-20] MEDS: Furosemide 20 MG/2 ML VIAL SLOW IVP SCH (09:27)
[2022-11-20] MEDS: Acetaminophen 325 MG TAB PO PRN (20:24)
[2022-11-21 05:19] LABS: ALT (SGPT) 148 U/L (8-55); AST (SGOT) 84 U/L (5-34); Albumin 3.4 g/dL (3.4-4.8); Alkaline Phosphatase 100 U/L (40-110); Anion Gap 14 mmol/L (10-20); BUN (Urea Nitrogen) 30 mg/dL (8.4-25.7); Bilirubin, Total 0.4 mg/dL (0.2-1.2); Calc. Creatinine Clearance 37 mL/min (70-130); Calcium 8.3 mg/dL (7.8-10.44); Carbon Dioxide 28 mmol/L (23-31); Chloride 100 mmol/L (98-107); Estimated GFR 38; Globulin 3.3 g/dL (2.4-3.5); Glucose 100 mg/dL (83-110); Potassium 4.1 mmol/L (3.5-5.1); Protein, Total 6.7 g/dL (5.8-8.1); Sodium 138 mmol/L (136-145)
[2022-11-21] MEDS: Arformoterol 15 MCG/2 ML NEB NEB SCH ×2 (07:58→18:40)
[2022-11-21] MEDS: Budesonide 0.5 MG/2 ML NEB NEB SCH ×2 (08:00→18:41)
[2022-11-21] MEDS: Metamucil PACK PER TUBE SCH (10:20)
[2022-11-21] MEDS: Cyanocobalamin (Vitamin B-12) 1,000 MCG TAB PO SCH (10:20)
[2022-11-21] MEDS: Lansoprazole 15 MG/5 ML (BATCHED)UDCUP PER TUBE SCH (10:20)
[2022-11-21] MEDS: Metoprolol Tartrate 25 MG TAB PO SCH ×2 (10:20→21:32)
[2022-11-21] MEDS: Amiodarone 200 MG TAB PO SCH ×2 (10:20→21:32)
[2022-11-21] MEDS: Aspirin Chewable 81 MG TAB PO SCH (10:21)
[2022-11-21] MEDS: pyridOXINE 50 MG (B6) TAB PO SCH (10:21)
[2022-11-21] MEDS: Thiamine 100 MG TAB PO SCH (10:21)
[2022-11-21] MEDS: Floranex 1 GM Packet PO SCH ×2 (10:21→21:32)
[2022-11-22 05:13] LABS: ALT (SGPT) 114 U/L (8-55); AST (SGOT) 67 U/L (5-34); Albumin 3.4 g/dL (3.4-4.8); Alkaline Phosphatase 97 U/L (40-110); Anion Gap 13 mmol/L (10-20); BUN (Urea Nitrogen) 24 mg/dL (8.4-25.7); Bilirubin, Total 0.3 mg/dL (0.2-1.2); Calc. Creatinine Clearance 38 mL/min (70-130); Calcium 8.5 mg/dL (7.8-10.44); Carbon Dioxide 26 mmol/L (23-31); Chloride 101 mmol/L (98-107); Estimated GFR 39; Globulin 3.4 g/dL (2.4-3.5); Glucose 105 mg/dL (83-110); Potassium 4.3 mmol/L (3.5-5.1); Protein, Total 6.8 g/dL (5.8-8.1); Sodium 136 mmol/L (136-145)
[2022-11-22] MEDS: Arformoterol 15 MCG/2 ML NEB NEB SCH ×2 (07:06→19:09)
[2022-11-22] MEDS: Budesonide 0.5 MG/2 ML NEB NEB SCH ×2 (07:07→19:10)
[2022-11-22] MEDS: pyridOXINE 50 MG (B6) TAB PO SCH (11:29)
[2022-11-22] MEDS: Metoprolol Tartrate 25 MG TAB PO SCH ×2 (11:29→20:45)
[2022-11-22] MEDS: Amiodarone 200 MG TAB PO SCH ×2 (11:30→20:45)
[2022-11-22] MEDS: Aspirin Chewable 81 MG TAB PO SCH (11:30)
[2022-11-22] MEDS: Thiamine 100 MG TAB PO SCH (11:30)
[2022-11-22] MEDS: Metamucil PACK PER TUBE SCH (11:30)
[2022-11-22] MEDS: Lansoprazole 15 MG/5 ML (BATCHED)UDCUP PER TUBE SCH (11:31)
[2022-11-22] MEDS: Floranex 1 GM Packet PO SCH ×2 (11:31→20:45)
[2022-11-22] MEDS: Cyanocobalamin (Vitamin B-12) 1,000 MCG TAB PO SCH (11:31)
[2022-11-23] MEDS: Arformoterol 15 MCG/2 ML NEB NEB SCH ×2 (07:08→19:00)
[2022-11-23] MEDS: Budesonide 0.5 MG/2 ML NEB NEB SCH (07:14)
[2022-11-23] MEDS: Metoprolol Tartrate 25 MG TAB PO SCH ×2 (10:44→21:41)
[2022-11-23] MEDS: Amiodarone 200 MG TAB PO SCH ×2 (10:45→21:42)
[2022-11-23] MEDS: Thiamine 100 MG TAB PO SCH (10:45)
[2022-11-23] MEDS: Aspirin Chewable 81 MG TAB PO SCH (10:45)
[2022-11-23] MEDS: Amlodipine 10 MG TAB PO SCH (10:45)
[2022-11-23] MEDS: Cyanocobalamin (Vitamin B-12) 1,000 MCG TAB PO SCH (10:45)
[2022-11-23] MEDS: pyridOXINE 50 MG (B6) TAB PO SCH (10:46)
[2022-11-24] MEDS: Arformoterol 15 MCG/2 ML NEB NEB SCH ×2 (07:44→18:53)
[2022-11-24 10:38] VITALS: BMI 25.7
[2022-11-24] MEDS: Amlodipine 10 MG TAB PO SCH (10:57)
[2022-11-24] MEDS: Cyanocobalamin (Vitamin B-12) 1,000 MCG TAB PO SCH (10:57)
[2022-11-24] MEDS: pyridOXINE 50 MG (B6) TAB PO SCH (10:57)
[2022-11-24] MEDS: Aspirin Chewable 81 MG TAB PO SCH (10:58)
[2022-11-24] MEDS: Amiodarone 200 MG TAB PO SCH (10:58)
[2022-11-24] MEDS: Thiamine 100 MG TAB PO SCH (11:00)
[2022-11-24] MEDS: Metoprolol Tartrate 25 MG TAB PO SCH ×2 (11:18→20:33)
[2022-11-25] MEDS: Arformoterol 15 MCG/2 ML NEB NEB SCH ×2 (10:24→19:16)
[2022-11-25] MEDS: Thiamine 100 MG TAB PO SCH (10:37)
[2022-11-25] MEDS: Amiodarone 200 MG TAB PO SCH (10:39)
[2022-11-25] MEDS: Cyanocobalamin (Vitamin B-12) 1,000 MCG TAB PO SCH (10:39)
[2022-11-25] MEDS: Aspirin Chewable 81 MG TAB PO SCH (10:39)
[2022-11-25] MEDS: Metoprolol Tartrate 25 MG TAB PO SCH ×2 (10:40→20:22)
[2022-11-25] MEDS: pyridOXINE 50 MG (B6) TAB PO SCH (10:40)
[2022-11-25] MEDS: Amlodipine 10 MG TAB PO SCH (10:42)
[2022-11-25] MEDS: Atorvastatin Calcium 40 MG TAB PO SCH (20:22)
[2022-11-26] MEDS: Arformoterol 15 MCG/2 ML NEB NEB SCH ×2 (07:34→19:07)
[2022-11-26] MEDS ORDERED: Amlodipine 5 MG TAB PO SCH (09:00)
[2022-11-26 09:06] LABS: Anion Gap 14 mmol/L (10-20); BUN (Urea Nitrogen) 25 mg/dL (8.4-25.7); Calc. Creatinine Clearance 29 mL/min (70-130); Calcium 8.5 mg/dL (7.8-10.44); Carbon Dioxide 21 mmol/L (23-31); Chloride 105 mmol/L (98-107); Estimated GFR 32; Glucose 79 mg/dL (83-110); Potassium 4.2 mmol/L (3.5-5.1); Sodium 136 mmol/L (136-145)
[2022-11-26] MEDS: Amiodarone 200 MG TAB PO SCH (09:09)
[2022-11-26] MEDS: Cyanocobalamin (Vitamin B-12) 1,000 MCG TAB PO SCH (09:09)
[2022-11-26] MEDS: Metoprolol Tartrate 25 MG TAB PO SCH ×2 (09:09→20:46)
[2022-11-26] MEDS: Lansoprazole 15 MG/5 ML (BATCHED)UDCUP PER TUBE SCH (09:10)
[2022-11-26] MEDS: pyridOXINE 50 MG (B6) TAB PO SCH (09:10)
[2022-11-26] MEDS: Aspirin Chewable 81 MG TAB PO SCH (09:10)
[2022-11-26] MEDS: Thiamine 100 MG TAB PO SCH (09:10)
[2022-11-26] MEDS: Melatonin 3 MG TAB PO PRN (20:46)
[2022-11-26] MEDS: Atorvastatin Calcium 40 MG TAB PO SCH (20:46)
[2022-11-27] MEDS: Lansoprazole 15 MG/5 ML (BATCHED)UDCUP PER TUBE SCH (09:00)
[2022-11-27] MEDS: pyridOXINE 50 MG (B6) TAB PO SCH (09:02)
[2022-11-27] MEDS: Amiodarone 200 MG TAB PO SCH (09:02)
[2022-11-27] MEDS: Aspirin Chewable 81 MG TAB PO SCH (09:02)
[2022-11-27] MEDS: Cyanocobalamin (Vitamin B-12) 1,000 MCG TAB PO SCH (09:02)
[2022-11-27] MEDS: Metoprolol Tartrate 25 MG TAB PO SCH (09:02)
[2022-11-27] MEDS: Thiamine 100 MG TAB PO SCH (09:06)
[2022-11-27 09:07] LABS: Anion Gap 16 mmol/L (10-20); BUN (Urea Nitrogen) 25 mg/dL (8.4-25.7); Calc. Creatinine Clearance 30 mL/min (70-130); Calcium 8.5 mg/dL (7.8-10.44); Carbon Dioxide 18 mmol/L (23-31); Chloride 106 mmol/L (98-107); Estimated GFR 34; Glucose 86 mg/dL (83-110); Potassium 4.2 mmol/L (3.5-5.1); Sodium 136 mmol/L (136-145)
[2022-11-27 10:11] LABS: Anisocytosis SLIGHT = 6-15 cells (100X) (0-5/hpf); Burr Cells SLIGHT = 2-5 cells (100X) (0-1/hpf); Hemoglobin 11.9 g/dL (14.0-18.0); Lymphocytes 42 % (21-51); MDiff Complete? YES; Mean Corpuscular HGB CONC 32.5 g/dL (32.0-36.0); Mean Corpuscular Hemoglobin 27.2 pg (27.0-31.0); Mean Corpuscular Volume 83.8 fl (78.0-98.0); Mean Platelet Volume 8.1 fL (7.4-10.4); Monocytes 14 % (0-10); Neutrophil 43 % (42-75); Platelet Count 415 10x3/uL (130-400); Platelet Morphology Comment Appears Increased; RBC Distribution Width 16.7 % (11.5-14.5); Red Blood Cell (RBC) Count 4.37 mill/uL (4.70-6.10); Target Cells SLIGHT = 2-5 cells (100X) (0-1/hpf)
[2022-11-27] MEDS: Arformoterol 15 MCG/2 ML NEB NEB SCH (10:42)
[2022-11-27 13:37] LABS: Fungus Culture Final report (.); Fungus Culture Result 1 Aspergillus terreus (.)
[2022-11-27 18:44] VITALS: BP 109/55; TEMP 97.6
== END 2022-11-27 17:30 | disposition swing bed (61) | DRG 233 ==
LOC: ERS 12:18 → 2NO 13:52 → CCU 10-30 11:14 → IMCU/EMU 11-17 22:16 → 2NO 11-20 19:31
PROVIDERS: ADMIT Internal Medicine; ATTEND Hospitalist
PROC: 4A023N7 Measurement of Cardiac Sampling and Pressure, Left Heart, Percutaneous Approach (ICD-10-PCS; principal; 2022-10-27)
PROC: B2151ZZ Fluoroscopy of Left Heart using Low Osmolar Contrast (ICD-10-PCS; 2022-10-27)
PROC: B2111ZZ Fluoroscopy of Multiple Coronary Arteries using Low Osmolar Contrast (ICD-10-PCS; 2022-10-27)
PROC: 021009W Bypass Coronary Artery, One Artery from Aorta with Autologous Venous Tissue, Open Approach (ICD-10-PCS; 2022-10-30)
PROC: 02100Z9 Bypass Coronary Artery, One Artery from Left Internal Mammary, Open Approach (ICD-10-PCS; 2022-10-30)
PROC: 06BQ0ZZ Excision of Left Saphenous Vein, Open Approach (ICD-10-PCS; 2022-10-30)
PROC: 5A1221Z Performance of Cardiac Output, Continuous (ICD-10-PCS; 2022-10-30)
PROC: 02L70ZK Occlusion of Left Atrial Appendage, Open Approach (ICD-10-PCS; 2022-10-30)
PROC: 5A1955Z Respiratory Ventilation, Greater than 96 Consecutive Hours (ICD-10-PCS; 2022-11-01)
PROC: 0BH18EZ Insertion of Endotracheal Airway into Trachea, Via Natural or Artificial Opening Endoscopic (ICD-10-PCS; 2022-11-01)
PROC: 0B968ZZ Drainage of Right Lower Lobe Bronchus, Via Natural or Artificial Opening Endoscopic (ICD-10-PCS; 2022-11-01)
PROC: 0D9770Z Drainage of Stomach, Pylorus with Drainage Device, Via Natural or Artificial Opening (ICD-10-PCS; 2022-11-01)
PROC: 3E033XZ Introduction of Vasopressor into Peripheral Vein, Percutaneous Approach (ICD-10-PCS; 2022-11-01)
PROC: 4A133R1 Monitoring of Arterial Saturation, Peripheral, Percutaneous Approach (ICD-10-PCS; 2022-11-01)
PROC: 3E03329 Introduction of Other Anti-infective into Peripheral Vein, Percutaneous Approach (ICD-10-PCS; 2022-11-01)
DX: I21.4 Non-ST elevation (NSTEMI) myocardial infarction (principal); A41.9 Sepsis, unspecified organism; G93.41 Metabolic encephalopathy; J96.21 Acute and chronic respiratory failure with hypoxia; J69.0 Pneumonitis due to inhalation of food and vomit; I50.43 Acute on chronic combined systolic (congestive) and diastolic (congestive) heart failure; N17.0 Acute kidney failure with tubular necrosis; I47.1 Supraventricular tachycardia; F10.931 Alcohol use, unspecified with withdrawal delirium; B48.8 Other specified mycoses; E87.0 Hyperosmolality and hypernatremia; K52.1 Toxic gastroenteritis and colitis; I13.0 Hypertensive heart and chronic kidney disease with heart failure and stage 1 through stage 4 chronic kidney disease, or unspecified chronic kidney disease; Z20.822 Contact with and (suspected) exposure to COVID-19; E03.9 Hypothyroidism, unspecified; K25.9 Gastric ulcer, unspecified as acute or chronic, without hemorrhage or perforation; I25.10 Atherosclerotic heart disease of native coronary artery without angina pectoris; E78.5 Hyperlipidemia, unspecified; I48.91 Unspecified atrial fibrillation; R00.1 Bradycardia, unspecified; Z79.899 Other long term (current) drug therapy; Z98.890 Other specified postprocedural states; Z79.890 Hormone replacement therapy; E87.6 Hypokalemia; E83.51 Hypocalcemia; N18.9 Chronic kidney disease, unspecified; T36.95XA Adverse effect of unspecified systemic antibiotic, initial encounter; R74.01 Elevation of levels of liver transaminase levels; Y95 Nosocomial condition
CPT/HCPCS: 36415; 36416; 36430; 36600; 71045; 74018; 74230; 76700; 80048; 80053; 80076; 80202; 81001; 82140; 82150; 82550; 82553; 82728; 82805; 83615; 83630; 83690; 83735; 84100; 84425; 84484; 85025; 85027; 85610; 85730; 86606; 86612; 86850; 86900; 86901; 87040; 87070; 87102; 87205; 87324; 87389; 87449; 87505; 93005; 93010; 93306; 93458; 94002; 94003; 94640; 94799; 96365; 97139; 99152; C1751; C1769; C1776; C9113; J0282; J0360; J0696; J1630; J1642; J1644; J1650; J1815; J1940; J2001; J2060; J2150; J2250; J2270; J2272; J2405; J2440; J2543; J2704; J2720; J2920; J3010; J3370; J3411; J3465; J3475; J3480; J3490; J7050; J7070; J7120; J7620; J7626; P9045; P9047; Q0162; Q9967; S0017; S0028; U0002; U0003; U0005

== ENCOUNTER 2023-03-29 22:28 | Inpatient (IN) | payer OTHER ==
[2023-03-29] MEDS ORDERED: Aspirin Chewable 81 MG TAB PO SCH (23:59)
[2023-03-30 00:05] LABS: Troponin I 0.022 ng/mL (< 0.028)
[2023-03-30 00:06] LABS: #Basophils 0.1 thou/uL (0.0-0.2); #Eosinphils 0.8 thou/uL (0.0-0.7); #Monocytes 1.5 thou/uL (0.11-0.59); #Neutrophils 4.8 thou/uL (1.40-6.50); %Basophils 0.8 % (0.0-1.0); %Eosinophils 7.9 % (0.0-10.0); %Lymphocytes 25.2 % (21.0-51.0); %Monocytes 15.3 % (0.0-10.0); %Neutrophils 50.2 % (42.0-75.0); Hematocrit 35.7 % (42.0-52.0); Hemoglobin 11.4 g/dL (14.0-18.0); Mean Corpuscular HGB CONC 31.9 g/dL (32.0-36.0); Mean Corpuscular Hemoglobin 26.4 pg (27.0-31.0); Mean Corpuscular Volume 82.6 fl (78.0-98.0); Mean Platelet Volume 10.6 fL (7.4-10.4); Platelet Count 195 10x3/uL (130-400); RBC Distribution Width 14.1 % (11.5-14.5); Red Blood Cell (RBC) Count 4.32 mill/uL (4.70-6.10); White Blood Cell (WBC) Count 9.6 10x3/uL (4.8-10.8)
[2023-03-30 00:25] LABS: ALT (SGPT) 34 U/L (8-55); AST (SGOT) 22 U/L (5-34); Albumin 3.4 g/dL (3.4-4.8); Alkaline Phosphatase 58 U/L (40-110); Anion Gap 10 mmol/L (10-20); BUN (Urea Nitrogen) 15 mg/dL (8.4-25.7); Bilirubin, Total 0.5 mg/dL (0.2-1.2); Calc. Creatinine Clearance 0 mL/min (70-130); Calcium 8.1 mg/dL (7.8-10.44); Carbon Dioxide 28 mmol/L (23-31); Chloride 99 mmol/L (98-107); Estimated GFR 57; Globulin 2.5 g/dL (2.4-3.5); Glucose 92 mg/dL (83-110); Magnesium 1.9 mg/dL (1.6-2.6); Potassium 4.1 mmol/L (3.5-5.1); Protein, Total 5.9 g/dL (5.8-8.1); Sodium 133 mmol/L (136-145)
[2023-03-30 01:46] VITALS: BMI 27.6
[2023-03-30 03:35] LABS: Cardiac Risk 2.8 (Less than 4.5)
[2023-03-30 03:39] LABS: Troponin I 0.024 ng/mL (< 0.028)
[2023-03-30] MEDS ORDERED: Amlodipine 10 MG TAB PO SCH ×2 (04:15→09:00)
[2023-03-30] MEDS ORDERED: Levothyroxine 150 MCG TAB PO SCH (06:00)
[2023-03-30 06:07] LABS: Troponin I 0.017 ng/mL (< 0.028)
[2023-03-30] MEDS ORDERED: Bromocriptine 2.5 MG TAB PO SCH (08:00)
[2023-03-30] MEDS ORDERED: Calcium Carbonate 600 MG + Vit D TAB PO SCH (08:00)
[2023-03-30] MEDS ORDERED: Dutasteride 0.5 MG CAP PO SCH (09:00)
[2023-03-30] MEDS ORDERED: Aspirin Chewable 81 MG TAB PO SCH (09:00)
[2023-03-30] MEDS ORDERED: Hydrocortisone 10 mg Tablet PO SCH (09:00)
[2023-03-30] MEDS ORDERED: PARoxetine 20 MG TAB PO SCH (09:00)
[2023-03-30] MEDS ORDERED: Aspirin 81 mg Enteric Coated Tablet PO SCH (09:00)
[2023-03-30] MEDS ORDERED: Furosemide 20 MG/2 ML VIAL SLOW IVP SCH (11:15)
[2023-03-30 15:56] VITALS: BP 156/69; TEMP 97.2
[2023-03-31] MEDS ORDERED: Amlodipine 10 MG TAB PO SCH (09:00)
[2023-04-20] MEDS ORDERED: Cyanocobalamin 1000 MCG/ML VIAL SC SCH (09:00)
== END 2023-03-30 17:45 | disposition home or self-care (01) | DRG 313 ==
LOC: ERS 22:28 → 2NO 23:45
PROVIDERS: ADMIT Student in an Organized Health Care Education/Training Program; ATTEND Nurse Practitioner Acute Care
DX: R07.9 Chest pain, unspecified (principal); E23.0 Hypopituitarism; E03.9 Hypothyroidism, unspecified; I10 Essential (primary) hypertension; I25.10 Atherosclerotic heart disease of native coronary artery without angina pectoris; D64.9 Anemia, unspecified; Z79.82 Long term (current) use of aspirin; Z79.899 Other long term (current) drug therapy; Z98.890 Other specified postprocedural states
CPT/HCPCS: 36415; 80061; 83735; 84484; 93005; 94760; J1940

== ENCOUNTER 2024-07-09 13:40 | Outpatient (CLI) | payer MEDICARE, OTHER ==
[2024-07-09 16:25] LABS: #Basophils 0.08 10x3/uL (0.0-0.2); %Basophils 0.8 % (0.0-1.0); %Eosinophils 1.9 % (0.0-10.0); %Lymphocytes 8.4 % (21.0-51.0); %Monocytes 14.6 % (0.0-10.0); %Neutrophils 72.8 % (42.0-75.0); Hematocrit 48.2 % (42.0-52.0); Hemoglobin 15.9 g/dL (14.0-18.0); Mean Corpuscular Hemoglobin 29.1 pg (27.0-31.0); Mean Corpuscular Volume 88.3 fL (78.0-98.0); Mean Platelet Volume 10.9 fL (7.4-10.4); Platelet Count 149 10x3/uL (130-400); RBC Distribution Width 14.2 % (11.5-14.5); Red Blood Cell (RBC) Count 5.46 mill/uL (4.70-6.10)
[2024-07-09 17:10] LABS: ALT (SGPT) 50 U/L (8-55); AST (SGOT) 35 U/L (5-34); Albumin 3.3 g/dL (3.4-4.8); Alkaline Phosphatase 48 U/L (40-110); Anion Gap 14 mmol/L (10-20); BUN (Urea Nitrogen) 23 mg/dL (8.4-25.7); Bilirubin, Direct 0.2 mg/dL (0.1-0.3); Bilirubin, Total 0.5 mg/dL (0.2-1.2); Calc. Creatinine Clearance 0 mL/min (70-130); Calcium 9.2 mg/dL (7.8-10.44); Carbon Dioxide 28 mmol/L (23-31); Chloride 103 mmol/L (98-107); Estimated GFR 56; Globulin 3.1 g/dL (2.4-3.5); Glucose 85 mg/dL (83-110); Potassium 4.5 mmol/L (3.5-5.1); Protein, Total 6.4 g/dL (5.8-8.1); Sodium 140 mmol/L (136-145)
== END 2024-07-09 13:41 | disposition home or self-care (01) ==
LOC: LABBT 13:40
PROVIDERS: ATTEND Internal Medicine Cardiovascular Disease
DX: Z01.818 Encounter for other preprocedural examination (principal); I25.5 Ischemic cardiomyopathy
CPT/HCPCS: 80053; 80076; 85025; 93005; 93010

== ENCOUNTER 2024-07-16 05:46 | Day surgery (SDC) | payer OTHER ==
[2024-07-09 14:35] VITALS: BMI 30.4
[2024-07-16] MEDS ORDERED: fentaNYL 50 mcg/mL 1 mL Vial ONE (06:27)
[2024-07-16] MEDS ORDERED: Midazolam HCl 2 mg/2 ml Vial ONE (06:28)
[2024-07-16] MEDS ORDERED: Heparin 10,000 UNITS/ 10 ML VIAL ONE (06:28)
[2024-07-16] MEDS ORDERED: Nitroglycerin 50 MG/250 ML BOT 0 ML ONE (06:28)
[2024-07-16 06:51] LABS: Cardiac Risk 3.1 (Less than 4.5)
[2024-07-16] MEDS ORDERED: hydrALAZINE 20 MG/ML VIAL ONE (08:15)
[2024-07-16] MEDS ORDERED: Iopamidol 370 76% 100 ML VIAL ONE (14:43)
== END 2024-07-16 11:43 | disposition home or self-care (01) ==
LOC: SDC 05:46
PROVIDERS: ATTEND Internal Medicine Cardiovascular Disease
PROC: 4A023N7 Measurement of Cardiac Sampling and Pressure, Left Heart, Percutaneous Approach (ICD-10-PCS; principal; 2024-07-16)
DX: I25.5 Ischemic cardiomyopathy (principal); I25.10 Atherosclerotic heart disease of native coronary artery without angina pectoris; I48.91 Unspecified atrial fibrillation; I25.2 Old myocardial infarction; I34.0 Nonrheumatic mitral (valve) insufficiency; I35.1 Nonrheumatic aortic (valve) insufficiency; I13.0 Hypertensive heart and chronic kidney disease with heart failure and stage 1 through stage 4 chronic kidney disease, or unspecified chronic kidney disease; I50.9 Heart failure, unspecified; N18.9 Chronic kidney disease, unspecified; E03.9 Hypothyroidism, unspecified; E78.5 Hyperlipidemia, unspecified; K21.9 Gastro-esophageal reflux disease without esophagitis; Z86.73 Personal history of transient ischemic attack (TIA), and cerebral infarction without residual deficits; Z95.1 Presence of aortocoronary bypass graft; Z98.890 Other specified postprocedural states; Z79.890 Hormone replacement therapy; Z79.82 Long term (current) use of aspirin; Z79.899 Other long term (current) drug therapy
CPT/HCPCS: 80061; 93459; 99152; 99153; C1769; C1887; J0360; J1644; J2250; J3010; Q9967